=== PATIENT | female | born 1945 | race Caucasian/White ===

== ENCOUNTER 2024-12-26 00:37 | Day surgery (SDC) | payer MEDICARE, BC, SELFPAY ==
[2024-12-20 13:21] VITALS: BMI 24.7
--- OUTSIDE RECORDS SUMMARY | 2024-12-26 00:41 | XMS_ITS | Clinical Summary ---
Author Organization [facility] Address [address] [place] [address] Care Team Providers Care Speech Coach Name Role Phone Unavailable Primary Care Provider Unavailabl e Source Comments [facility],non-owned Affiliates and Associated Physician Practices is amultiple site organization consisting of ambulatory clinics and hospital sitesin [place], [place], [place] and [place]. This disclosure is being madepursuant to the Care Everywhere program and may not contain all information available regarding this patient. [facility] updated 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 Gender Identity Not on file Sexual Orientation Not on file Plan of Treatment Health Maintenance Due Date Last Done Comments BONE DENSITY TESTING 1945 MEDICARE AWV 12 MONTHS 1945 HEPATITIS C SCREENING 09/06/1965 DTAP/TDAP/TD VACCINES (1 - Tdap) 1966 PNEUMOCOCCAL VACCINE 50+ (1 of 1 - PCV) 1997 ZOSTER VACCINE (1 of 2) 1997 Respiratory Syncytial Virus (RSV) Vaccine Pt: or over 60 yrs (1 - 1-dose 75+ series) 2022 COVID-19 VACCINE ( - 2023-2 5 season) 2024 DEPRESSION SCREENING 08/02/2024 INFLUENZA VACCINE (Season Ended) 2025 HEPATITIS B VACCINE Aged Out No longe r eligible based on patient's age to complete this topic HIB VACCINE Aged Out No longer eligi ble based on patient's age to complete this topic HPV VACCINE Aged Out No longer eligi ble based on patient's age to complete this topic MENINGOCOCCAL (Group B) VACC INE SHARED DECISION-MAKING Aged Out No longer eligibl e based on patient's age to complete this topic MENINGOCOCCAL GROUPS A/C/Y/W VACCINE Aged Out No longer eligible b ased on patient's age to complete this topic Insurance MEDICARE [employer]M MEDICARE [employer]M
--- OUTSIDE RECORDS SUMMARY | 2024-12-26 00:41 | XMS_ITS | CONTINUITY OF CARE DOCUMENT ---
Author Name [email or web address] Address Unknown Organization [facility] Address [address] [place] [address] Phone [phone] Care Team Providers Care Melt Superintendant Name Role Phone Flex ZAMORA, Denise Unavailable ROSE WARD MD Unavailable [phone] FREDDY JOHANSEN MD Unavailable INSURANCE PROVIDERS Payer name Policy type / Coverage type [employer] red [employer] party ID [facility] [id number]
--- OUTSIDE RECORDS SUMMARY | 2024-12-26 00:41 | XMS_ITS | Encounter Summary ---
Author Organization [facility] Address [address] [place] [address] Care Team Providers Care Head Bucker Name Role Phone Unavailable Primary Care Provider Unavailabl e Encounter Details Date Type Department Care Team (Late st Contact Info) Description 12/04/2020 Lab Requisition [facility] [address] [place] [id number] Calixto Sánchez MD [address] [place] [address] Social History Tobacco Use Types Packs/Day Years Used Date Smoking Tobacco: Never Assessed Comments Unknown Sex and Gender Information Value Date Recorded Sex Assigned at Not on file 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 Gender Identity Not on file Sexual Orientation Not on file documented as of this encounter Plan of Treatment Not on file documented as of this encounter Procedures Procedure Name Priority Date/Time Associated Diagnosis Comments DERMATOPATHOLOGY Routine 12/03/2020 12:0 0 AM CDT documented in this encounter Results * DERMATOPATHOLOGY (12/03/2020 12:00 AM CDT) Case Report Dermatopathology Report Case: [id number] Authorizing Provider: Calixto Sánchez MD Collected: 12/03/2020 12:00 AM Ordering Location: [facility] Received: 12/04/2020 01:50 PM Pathologist: Swapna Almaraz MD Specimen: Skin, right presybeterian hairline 4:28 PM CDT DERMATOPATHOLOGY LABORATORY Final Diagnosis Specimen A. SKIN, right presybeterian hairline: SQUAMOUS PROLIFERATION (D48.5) (see microscopic description and comment) 4:28 PM CDT DERMATOPATHOLOGY LABORATORY at 1628 CDT Clinical History R/O ISK,SCC,BCC 4:28 PM CDT DERMATOPATHOLOGY LABORATORY Gross Description Specimen A: Received is one formalin filled container labeled with the patient's name and designated right presybeterian hairline. The specimen consists of a shave biopsy measuring 10x8x1 mm. Jar 0. 1 4:28 PM CDT DERMATOPATHOLOGY LABORATORY Microscopic Description Specimen A. SKIN, right presybeterian hairline: Sections show maturational disarray and nuclear pleomorphism of keratinocytes extending throughout the full thickness of the specimen. There is focal parakeratosis. The base of this lesion is not visualized. COMMENT: The histological differential diagnosis includes an irritated and inflamed benign keratosis, which is somewhat favored; a hypertrophic actinic keratosis; and squamous cell carcinoma. 4:28 PM CDT DERMATOPATHOLOGY LABORATORY Disclaimer An external and internal positive and negative controls are appropriate for the histochemical, immunohistochemical and immunofluorescence stain(s) in this case (if any), except where stated explicitly. The performance characteristics of the stain(s) cited in this report were developed and its performance characteristic determined by the Dermatopathology Laboratory at [facility], directed by Dr. Tanya Ace. These tests need not be, and therefore are not, approved by the [place] Food and Drug Administration. The tests are used for clinical purposes. Billing Codes Specimen Charges Stain Charges 14261 1 1 4:28 PM CDT DERMATOPATHOLOGY LABORATORY Embedded Images 4:28 PM CDT DERMATOPATHOLOGY LABORATORY Pathology/Cytolog y TISSUE SPECIMEN FROM SKIN / Unknown 12/03/2020 12/04/2020 1:50 PM CDT Calixto Sánchez MD LAB - PATHOLOGY/CYTOLOGY ORD ERABLES Final Result DERMATOPATHOLOGY LABORATORY [facility] - Department of Dermatology [address] [place] [address], [facility] [phone] documented in this encounter Visit Diagnoses Not on filedocumented in this encounter
--- OUTSIDE RECORDS SUMMARY | 2024-12-26 00:41 | XMS_ITS | Data Portability ---
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 Name Role Phone FREDDY ENGLISH Primary Care Provider Assessment Encounter Date Assessment Date Assessment LastModified by Organization Details LastModified Time 01/19/2023 01/19/2023 Medicare wellness completed Diagnosis assessment been discussed Blood work ordered Bone density Follow-up in 6 months [email or web address] Not available 01/19/2023 21:24:18 07/20/2023 07/20/2023 Continue current therapy will follow-up with me in 4-6 months Not available 07/20/2023 13:51:05 Plan of Treatment Reminders Order Date Submit Date Provider Last Modified By Organization Details Last Modified Time Details Appointments None recorded . Lab lipid panel, serum 023 01/20/20 [facility] (Lab), [address] [place], [address], 3 15:38:24 CBC w/ auto diff 023 01/20/20 [facility] (Lab), [address] [place], [address], 3 14:39:39 CMP, serum or plasma 023 01/20/20 [facility] (Lab), [address] [place], [address], 3 15:38:27 Referral None recorded . Procedures None recorded . Surgeries None recorded . Imaging None recorded . Medication Orders None recorded . Patient TargetsNo targets recorded. Patient Instructions Encounter Date Encounter Id Patient Instructions Last Modified By Organization Details Last Modified Time 01/19/2023 [id number] dementia rating scale-2* [email or web address] Not available 01/19/2023 17:11:11 alcohol misuse* [email or web address] Not available 01/19/2023 17:11:11 depression screening* [email or web address] Not available 01/19/2023 17:11:11 multi-dimensiona l health assessment questionnaire* [email or web address] Not available 01/19/2023 17:11:11 Personalized Hea lt Plan and Screening Recommendations Advance Directives - Do you have one? Yes Advance Directives - Do we have your advance directive on file in your health record? No, please bring in a copy at your earliest convenience Primary Prevention/Interven tion (prevents or decreases the chance of common diseases from occurring) Smoking Risk: Non Smoker Refer to attached smoking cessation handouts Refer to attached handouts and prescription will be sent to pharmacy Continue to consider stopping smoking and call if we can assist you Recommend screening for possible Emphysema with pulmonary function testing Recommend lung cancer screening with low dose CT scan of the chest I have no recommendations. Alcohol Misuse Screening: Negative Refer to attached alcohol cessation handout Refer to attached handout and prescription will be sent to pharmacy Decrease alcohol intake to 1 or less servings per day Continue to consider stopping alcohol and call if we can assist you Recommend referral for alcohol counseling/rehabili tation I have no recommendations. Weight: Appropriate Physical activity: Appropriate physical activity Nutrition: Good Fall Risk (screened today): Low Vaccines Pneumococcal: No further needed Influenza: Your next one in the fall of this year Chronic Disease Risks Stroke: Intermediate Risk I have no recommendations Act shanelle diagnosis, Continue current treatment plan My recommendation would be to make an appointment for further testing Continue current treatment plan Heart Attack: Intermediate Risk I have no recommendations Act shanelle diagnosis, Continue current treatment plan My recommendation would be to make an appointment for further testing Continue current treatment plan Clogging of the Arteries: Intermediate Risk I have no recommendations Act shanelle diagnosis, Continue current treatment plan My recommendation would be to make an appointment for further testing Continue current treatment plan Diabetes: Low Risk I have no recommendations Secondary Prevention/Interven tion (detects treatable diseases before they may cause symptoms, disability, or ) Breast Cancer Screening with mammogram: Your next mammogram: Ordered Recommended today Recommended today, but you have declined No screening necessary Your next mammogram: Fall 2022 Cervical/Uterine/Ov nic Cancer Screening: No screening necessary Osteoporosis Screening: Recommended today Date Screening Last Performed: 08/15/20 Colon Cancer Screening: Colonoscopy In: Ordered Recomme nded Recommended today, but you have declined No screening necessary In: 05/04/2024 Date Screening Last Performed: 05/03/19 with repeat recommendation for 5 years Eye Disease Screening: Ordered Recommended today Recommended today, but you have declined No Eye exam necessary Your next exam in: 01/2024 Dementia Risk: Low I have no recommendations Depression Screening: Negative Recommend additional evaluation and/or treatment as noted above Recommend follow appointment to further evaluate Recommend Behavioral Health referral Active diagnosis, Continue current treatment plan I have no recommendations. Not available 01/19/2023 15:56:09 Reason for Referral None Reported. Results Created Date Observation Date Name Description Value Unit Range Abnormal Flag Note LastModifiedBy Organization Detail LastModifiedTime 01/24/20 22 01/23/2022 COMPR EHENS SHANELLE METAB OLIC PANEL sodium 138 mmol/ L 137-14 5 Not Available [facility] (Lab) [address] [place], [address], 01/23/2022 13:18:47 01/24/20 22 01/23/2022 COMPR EHENS SHANELLE METAB OLIC PANEL potassium 4.5 mmol/ L 3.5-5. 1 Not Available [facility] (Lab) [address] [place], [address], 01/23/2022 13:18:47 01/24/20 22 01/23/2022 COMPR EHENS SHANELLE METAB OLIC PANEL chloride 103 mmol/ L 98-107 Not Available [facility] (Lab) [address] [place], [address], 01/23/2022 13:18:47 01/24/20 22 01/23/2022 COMPR EHENS SHANELLE METAB OLIC PANEL carbon dioxide 29 mmol/ L 22-30 Not Available [facility] (Lab) [address] [place], [address], 01/23/2022 13:18:47 01/24/20 22 01/23/2022 COMPR EHENS SHANELLE METAB OLIC PANEL anion gap 10.5 mmol/ L 14-22 low Not Available [facility] (Lab) [address] [place], [address], 01/23/2022 13:18:47 01/24/20 22 01/23/2022 COMPR EHENS SHANELLE METAB OLIC PANEL glucose 104 mg/dL 70-99 high Not Available [facility] (Lab) [address] [place], [address], 01/23/2022 13:18:47 01/24/20 22 01/23/2022 COMPR EHENS SHANELLE METAB OLIC PANEL BUN 14 mg/dL 8-19 Not Available [facility] (Lab) [address] [place], [address], 01/23/2022 13:18:47 01/24/20 22 01/23/2022 COMPR EHENS SHANELLE METAB OLIC PANEL creatinine 0.64 mg/dL 0.66-1 .25 low Not Available [facility] (Lab) [address] [place], [address], 01/23/2022 13:18:47 01/24/20 22 01/23/2022 COMPR EHENS SHANELLE METAB OLIC PANEL GFR >60 Refer ence Range : [place] ge GFR Healt hy Adult : >60 mL/mi n/1.7 3 m2 Chron ic Kidne y Disea se: 15-60 mL/mi n/1.7 3 m2 Kidne y Failu re: <15/m L/min /1.73 m2 www.n iddk. nih.g ov The MDRD study equat ion has not been valid ated in child fernie <18 years of age; pregn ant women ; the elder ly >85 years of age; or in some racia l or ethni c subgr oups, such as Hispa nics. Outsi de the valid ated mary eters , estim ated GFR is less accur ate, requi ring clini leisa judgm ent on a case- by-ca se basis . Clini leisa inter preta tion for other races and ages must be made by the clini avila. The MDRD study equat ion has not been valid ated for the evalu ation of serum creat inine relat ed to nutri fransisco l statu s or medic ation usage . For perso ns <18 years of age, a pedia tric GFR calcu lator is avail able on the [facility] websi te: https ://ww w.kid mary.o rg/pr ofess ional s/kdo qi/gf r_cal culat or Not Available [facility] (Lab) [address] [place], [address], 01/23/2022 13:18:47 01/24/20 22 01/23/2022 COMPR EHENS SHANELLE METAB OLIC PANEL alkaline phosphatase 81 U/L 38-126 Not Available [facility] (Lab) [address] [place], [address], 01/23/2022 13:18:47 01/24/20 22 01/23/2022 COMPR EHENS SHANELLE METAB OLIC PANEL alanine aminotransfe rase 20 U/L 0-35 Not Available [facility] (Lab) [address] [place], [address], 01/23/2022 13:18:47 01/24/20 22 01/23/2022 COMPR EHENS SHANELLE METAB OLIC PANEL aspartate aminotransfe rase 27 U/L 15-37 Not Available [facility] (Lab) [address] [place], [address], 01/23/2022 13:18:47 01/24/20 22 01/23/2022 COMPR EHENS SHANELLE METAB OLIC PANEL bilirubin, total 0.40 mg/dL 0.20-1 .30 Not Available [facility] (Lab) [address] [place], [address], 01/23/2022 13:18:47 01/24/20 22 01/23/2022 COMPR EHENS SHANELLE METAB OLIC PANEL calcium 9.5 mg/dL 8.4-10 .2 Not Available [facility] (Lab) [address] [place], [address], 01/23/2022 13:18:47 01/24/20 22 01/23/2022 COMPR EHENS SHANELLE METAB OLIC PANEL total protein 7.7 g/dL 6.3-8. 2 Not Available [facility] (Lab) [address] [place], [address], 01/23/2022 13:18:47 01/24/20 22 01/23/2022 COMPR EHENS SHANELLE METAB OLIC PANEL albumin 4.5 g/dL 3.0-4. 4 high Not Available [facility] (Lab) [address] [place], [address], 01/23/2022 13:18:47 01/24/20 22 01/23/2022 COMPR EHENS SHANELLE METAB OLIC PANEL globulin 3.2 g/dL 2.6-4. 2 Not Available [facility] (Lab) [address] [place], [address], 01/23/2022 13:18:47 01/24/20 22 01/23/2022 COMPR EHENS SHANELLE METAB OLIC PANEL A/G ratio 1.4 ratio 1.0-2. 0 Not Available [facility] (Lab) [address] [place], [address], 01/23/2022 13:18:47 01/24/20 22 01/23/2022 LIPID PANEL cholesterol 204 mg/dL 140-19 9 high NIH SHYANNE NSUS RECOM MENDA TION FOR JAY JAY STERO L: ADULT CHILD LOW RISK: <200 <170 BORDE RLINE : <200- 239 ----- HIGH RISK: >240 >200 Not Available [facility] (Lab) [address] [place], [address], 01/23/2022 13:18:42 01/24/20 22 01/23/2022 LIPID PANEL triglyceride s 105 mg/dL 0-150 NIH SHYANNE NSUS REPOR T RECOM MENDA TION FOR TRIGL YCERI NIKOLE: ADULT CHILD LOW RISK: <150 ----- BODER LINE: 150-1 99 ----- HIGH RISK: >200 ----- Not Available [facility] (Lab) [address] [place], [address], 01/23/2022 13:18:42 01/24/20 22 01/23/2022 LIPID PANEL HDL cholesterol 57 mg/dL 40- Not Available [facility] (Lab) [address] [place], [address], 01/23/2022 13:18:42 01/24/2001/23/2022 LIPID PANEL LDL cholesterol, calculated 126 mg/dL 0-130 NIH SHYANNE NSUS REPOR T RECOM MENDA TIONS FOR LDL: ADULT CHILD LOW RISK <130 <110 (OPTI MAL LDL) <100 ----- BORDE RLINE : 130-1 59 ----- HIGH RISK: >160 >130 A TRIGL YCERI DE RESUL T >400 INVAL IDATE S THE CALCU LATIO N FOR LDL FRACT IONAT ION - THE LDL RESUL T WILL NOT BE REPOR JESS. Not Available [facility] (Lab) [address] [place], [address], 01/23/2022 13:18:42 05/29/20 22 05/29/2022 SARS- COV-2 RNA(C OVID1 9),RT -PCR sars-cov-2 RNA(covid19) ,RT-PCR negati ve This test has been autho rized by the FDA under an Emerg ency Use Autho rizat ion (EUA) for use by autho rized labor atori es. Negat shanelle resul ts do not precl ude SARS- CoV-2 and shoul d not be used as the sole basis for treat ment or other patie nt manag ement decis ions. Test resul ts shoul d be corre lated with the clini leisa histo ry, epide miolo gical data, and other data avail able to the clini avila evalu ating the patie nt. Christel magaña w the Fact Sheet s for healt h care provi ders and patie nts at the [facility]: https ://ww w.UserVoice .gov/ media /1363 12/do wnloa d https ://ww w.fda .gov/ media /1363 13/do wnloa d https ://ww nexTune.UserVoice .gov/ media /1421 92/do wnloa d https ://Scandit .gov/ media /1421 91/do wnloa d Metho dolog y: Real- Time RT-PC R Not Available [facility] (Lab) [address] [place], [address], 05/29/2022 18:06:09 05/29/2005/29/2022 INFLU EUGENIA A/B ANTIG EN RAPID flu A negati ve negati ve Not Available [facility] (Lab) [address] [place], [address], 05/29/2022 17:23:43 05/29/20 22 05/29/2022 INFLU EUGENIA A/B ANTIG EN RAPID flu B negati ve negati ve THIS TEST CAN NOT DISTI NGUIS H INFLU EUGENIA A VIRUS SUBTY PES. ALSO, CHRISTEL E NOTE THAT A NEGAT SHANELLE RESUL T DOES NOT EXCLU DE INFLU EUGENIA VIRUS INFEC TION. IF MORE CONCL USIVE TESTI NG IS SAM ED, [facility] CONFI RMATO RY TESTI NG WITH RT-PC R IS MARIA A LYONS. Not Available [facility] (Lab) [address] [place], [address], 05/29/2022 17:23:43 05/29/20 22 05/29/2022 INFLU EUGENIA A/B ANTIG EN RAPID valid QC positi ve Not Available [facility] (Lab) [address] [place], [address], 05/29/2022 17:23:43 05/29/20 22 05/29/2022 INFLU EUGENIA A/B ANTIG EN RAPID lot # [id number] Not Available [facility] (Lab) [address] [place], [address], 05/29/2022 17:23:43 05/29/20 22 05/29/2022 INFLU EUGENIA A/B ANTIG EN RAPID source pearl glue drier swab Not Available [facility] (Lab) [address] [place], [address], 05/29/2022 17:23:43 02/16/20 23 02/15/2023 CBC/C OMPLE TE BLD COUNT W/DIF F white blood cells 8.5 x10'3 /uL 4.2-10 .8 Not Available [facility] (Lab) [address] [place], [address], 02/15/2023 14:39:39 02/16/20 23 02/15/2023 CBC/C OMPLE TE BLD COUNT W/DIF F red blood cells 4.64 x10'6 /uL 3.80-5 .20 Not Available [facility] (Lab) [address] [place], [address], 02/15/2023 14:39:39 02/16/20 23 02/15/2023 CBC/C OMPLE TE BLD COUNT W/DIF F hemoglobin 13.2 g/dL 12.0-1 5.6 Not Available [facility] (Lab) [address] [place], [address], 02/15/2023 14:39:39 02/16/20 23 02/15/2023 CBC/C OMPLE TE BLD COUNT W/DIF F hematocrit 40.6 % 35.7-4 5.7 Not Available [facility] (Lab) [address] [place], [address], 02/15/2023 14:39:39 02/16/20 23 02/15/2023 CBC/C OMPLE TE BLD COUNT W/DIF F mean red cell volume 87.5 fL 82.0-9 9.0 Not Available [facility] (Lab) [address] [place], [address], 02/15/2023 14:39:39 02/16/20 23 02/15/2023 CBC/C OMPLE TE BLD COUNT W/DIF F mean red cell hemoglobin 28.4 pg 27.0-3 3.0 Not Available [facility] (Lab) [address] [place], [address], 02/15/2023 14:39:39 02/16/20 23 02/15/2023 CBC/C OMPLE TE BLD COUNT W/DIF F mean RBC HGB concentratio n 32.5 g/dL 31.0-3 6.0 Not Available [facility] (Lab) [address] [place], [address], 02/15/2023 14:39:39 02/16/20 23 02/15/2023 CBC/C OMPLE TE BLD COUNT W/DIF F red cell distribution width 13.0 % 11.8-1 5.5 Not Available [facility] (Lab) [address] [place], [address], 02/15/2023 14:39:39 02/16/20 23 02/15/2023 CBC/C OMPLE TE BLD COUNT W/DIF F platelets 391 x10'3 /uL 150-40 0 Not Available [facility] (Lab) [address] [place], [address], 02/15/2023 14:39:39 02/16/20 23 02/15/2023 CBC/C OMPLE TE BLD COUNT W/DIF F mean platelet volume 10.4 fL 9.0-12 .4 Not Available [facility] (Lab) [address] [place], [address], 02/15/2023 14:39:39 02/16/20 23 02/15/2023 CBC/C OMPLE TE BLD COUNT W/DIF F neutrophils 52.5 % 39.0-7 2.0 Not Available [facility] (Lab) [address] [place], [address], 02/15/2023 14:39:39 02/16/20 23 02/15/2023 CBC/C OMPLE TE BLD COUNT W/DIF F lymphocytes 34.1 % 16.0-4 7.0 Not Available [facility] (Lab) [address] [place], [address], 02/15/2023 14:39:39 02/16/20 23 02/15/2023 CBC/C OMPLE TE BLD COUNT W/DIF F monocytes 8.6 % 5.0-12 .0 Not Available [facility] (Lab) [address] [place], [address], 02/15/2023 14:39:39 02/16/20 23 02/15/2023 CBC/C OMPLE TE BLD COUNT W/DIF F eosinophils 3.8 % 1.0-7. 0 Not Available [facility] (Lab) [address] [place], [address], 02/15/2023 14:39:39 02/16/20 23 02/15/2023 CBC/C OMPLE TE BLD COUNT W/DIF F basophils 0.8 % 0.0-2. 0 Not Available [facility] (Lab) [address] [place], [address], 02/15/2023 14:39:39 02/16/20 23 02/15/2023 CBC/C OMPLE TE BLD COUNT W/DIF F immature granulocytes 0.2 % 0.00-0 .50 Not Available [facility] (Lab) [address] [place], [address], 02/15/2023 14:39:39 02/16/20 23 02/15/2023 CBC/C OMPLE TE BLD COUNT W/DIF F neutrophils, absolute count 4.43 x10'3 /uL 1.5-8. 0 Not Available [facility] (Lab) [address] [place], [address], 02/15/2023 14:39:39 02/16/20 23 02/15/2023 CBC/C OMPLE TE BLD COUNT W/DIF F lymphocytes, absolute count 2.88 x10'3 /uL 1.07-3 .43 Not Available [facility] (Lab) [address] [place], [address], 02/15/2023 14:39:39 02/16/20 23 02/15/2023 CBC/C OMPLE TE BLD COUNT W/DIF F monocytes, absolute count 0.73 x10'3 /uL 0.29-0 .99 Not Available [facility] (Lab) [address] [place], [address], 02/15/2023 14:39:39 02/16/20 23 02/15/2023 CBC/C OMPLE TE BLD COUNT W/DIF F eosinophils, absolute count 0.32 x10'3 /uL 0.02-0 .53 Not Available [facility] (Lab) [address] [place], [address], 02/15/2023 14:39:39 02/16/20 23 02/15/2023 CBC/C OMPLE TE BLD COUNT W/DIF F basophils, absolute count 0.07 x10'3 /uL 0.01-0 .08 Not Available [facility] (Lab) [address] [place], [address], 02/15/2023 14:39:39 02/16/20 23 02/15/2023 CBC/C OMPLE TE BLD COUNT W/DIF F immature granulocytes ,absolute 0.02 x10'3 /uL 0.00-0 .05 Not Available [facility] (Lab) [address] [place], [address], 02/15/2023 14:39:39 02/16/20 23 02/15/2023 CBC/C OMPLE TE BLD COUNT W/DIF F nucleated red blood cells 0.0 % -0 Not Available [facility] (Lab) [address] [place], [address], 02/15/2023 14:39:39 02/16/20 23 02/15/2023 CBC/C OMPLE TE BLD COUNT W/DIF F NRBC# 0.00 x10'3 /uL Not Available [facility] (Lab) [address] [place], [address], 02/15/2023 14:39:39 02/16/20 23 02/15/2023 LIPID PANEL cholesterol 248 mg/dL 140-19 9 high NIH SHYANNE NSUS RECOM MENDA TION FOR JAY JAY STERO L: ADULT CHILD LOW RISK: <200 <170 BORDE RLINE : <200- 239 ----- HIGH RISK: >240 >200 Not Available [facility] (Lab) [address] [place], [address], 02/15/2023 15:38:24 02/16/20 23 02/15/2023 LIPID PANEL triglyceride s 147 mg/dL 0-150 NIH SHYANNE NSUS REPOR T RECOM MENDA TION FOR TRIGL YCERI NIKOLE: ADULT CHILD LOW RISK: <150 ----- BODER LINE: 150-1 99 ----- HIGH RISK: >200 ----- Not Available [facility] (Lab) [address] [place], [address], 02/15/2023 15:38:24 02/16/20 23 02/15/2023 LIPID PANEL HDL cholesterol 53 mg/dL 40- Not Available [facility] (Lab) [address] [place], [address], 02/15/2023 15:38:24 02/16/20 23 02/15/2023 LIPID PANEL LDL cholesterol, calculated 166 mg/dL 0-130 high NIH SHYANNE NSUS REPOR T RECOM MENDA TIONS FOR LDL: ADULT CHILD LOW RISK <130 <110 (OPTI MAL LDL) <100 ----- BORDE RLINE : 130-1 59 ----- HIGH RISK: >160 >130 A TRIGL YCERI DE RESUL T >400 INVAL IDATE S THE CALCU LATIO N FOR LDL FRACT IONAT ION - THE LDL RESUL T WILL NOT BE REPOR JESS. Not Available [facility] (Lab) [address] [place], [address], 02/15/2023 15:38:24 02/16/20 23 02/15/2023 COMPR EHENS SHANELLE METAB OLIC PANEL sodium 138 mmol/ L 137-14 5 Not Available [facility] (Lab) [address] [place], [address], 02/15/2023 15:38:27 02/16/20 23 02/15/2023 COMPR EHENS SHANELLE METAB OLIC PANEL potassium 4.1 mmol/ L 3.5-5. 1 Not Available [facility] (Lab) [address] [place], [address], 02/15/2023 15:38:27 02/16/20 23 02/15/2023 COMPR EHENS SHANELLE METAB OLIC PANEL chloride 100 mmol/ L 98-107 Not Available [facility] (Lab) [address] [place], [address], 02/15/2023 15:38:27 02/16/20 23 02/15/2023 COMPR EHENS SHANELLE METAB OLIC PANEL carbon dioxide 27 mmol/ L 22-30 Not Available [facility] (Lab) [address] [place], [address], 02/15/2023 15:38:27 02/16/20 23 02/15/2023 COMPR EHENS SHANELLE METAB OLIC PANEL anion gap 15.1 mmol/ L 14-22 Not Available [facility] (Lab) [address] [place], [address], 02/15/2023 15:38:27 02/16/20 23 02/15/2023 COMPR EHENS SHANELLE METAB OLIC PANEL glucose 104 mg/dL 70-99 high Not Available [facility] (Lab) [address] [place], [address], 02/15/2023 15:38:27 02/16/20 23 02/15/2023 COMPR EHENS SHANELLE METAB OLIC PANEL BUN 12 mg/dL 8-19 Not Available [facility] (Lab) [address] [place], [address], 02/15/2023 15:38:27 02/16/20 23 02/15/2023 COMPR EHENS SHANELLE METAB OLIC PANEL creatinine 0.61 mg/dL 0.66-1 .25 low Not Available [facility] (Lab) [address] [place], [address], 02/15/2023 15:38:27 02/16/20 23 02/15/2023 COMPR EHENS SHANELLE METAB OLIC PANEL GFR >60 Refer ence Range : [place] ge GFR Healt hy Adult : >60 mL/mi n/1.7 3 m2 Chron ic Kidne y Disea se: 15-60 mL/mi n/1.7 3 m2 Kidne y Failu re: <15/m L/min /1.73 m2 www.n iddk. nih.g ov The MDRD study equat ion has not been valid ated in child fernie <18 years of age; pregn ant women ; the elder ly >85 years of age; or in some racia l or ethni c subgr oups, such as Hispa nics. Outsi de the valid ated mary eters , estim ated GFR is less accur ate, requi ring clini leisa judgm ent on a case- by-ca se basis . Clini leisa inter preta tion for other races and ages must be made by the clini avila. The MDRD study equat ion has not been valid ated for the evalu ation of serum creat inine relat ed to nutri fransisco l statu s or medic ation usage . For perso ns <18 years of age, a pedia tric GFR calcu lator is avail able on the [facility] websi te: https ://ww w.kid mary.o rg/pr ofess ional s/kdo qi/gf r_cal culat or Not Available [facility] (Lab) [address] [place], [address], 02/15/2023 15:38:27 02/16/20 23 02/15/2023 COMPR EHENS SHANELLE METAB OLIC PANEL alkaline phosphatase 77 U/L 38-126 Not Available [facility] (Lab) [address] [place], [address], 02/15/2023 15:38:27 02/16/20 23 02/15/2023 COMPR EHENS SHANELLE METAB OLIC PANEL alanine aminotransfe rase 24 U/L 0-35 Not Available [facility] (Lab) [address] [place], [address], 02/15/2023 15:38:27 02/16/20 23 02/15/2023 COMPR EHENS SHANELLE METAB OLIC PANEL aspartate aminotransfe rase 32 U/L 15-37 Not Available [facility] (Lab) [address] [place], [address], 02/15/2023 15:38:27 02/16/20 23 02/15/2023 COMPR EHENS SHANELLE METAB OLIC PANEL bilirubin, total 0.60 mg/dL 0.20-1 .30 Not Available [facility] (Lab) [address] [place], [address], 02/15/2023 15:38:27 02/16/20 23 02/15/2023 COMPR EHENS SHANELLE METAB OLIC PANEL calcium 9.4 mg/dL 8.4-10 .2 Not Available [facility] (Lab) [address] [place], [address], 02/15/2023 15:38:27 02/16/20 23 02/15/2023 COMPR EHENS SHANELLE METAB OLIC PANEL total protein 7.9 g/dL 6.3-8. 2 Not Available [facility] (Lab) [address] [place], [address], 02/15/2023 15:38:27 02/16/20 23 02/15/2023 COMPR EHENS SHANELLE METAB OLIC PANEL albumin 4.4 g/dL 3.0-4. 4 Not Available [facility] (Lab) [address] [place], [address], 02/15/2023 15:38:27 02/16/20 23 02/15/2023 COMPR EHENS SHANELLE METAB OLIC PANEL globulin 3.5 g/dL 2.6-4. 2 Not Available [facility] (Lab) [address] [place], [address], 02/15/2023 15:38:27 02/16/20 23 02/15/2023 COMPR EHENS SHANELLE METAB OLIC PANEL A/G ratio 1.3 ratio 1.0-2. 0 Not Available [facility] (Lab) [address] [place], [address], 02/15/2023 15:38:27 06/23/20 22 06/23/2022 XR, chest , 2 view [facility] [address] [place] [address] [phone] Patien t Name: MEREDITH LORENZO Access ion #: [id number] Sex: F : 1945 3 Locati on: RAD Attend ing Physic palak: ELYSSA ENGLISH Orderi ng Physic palak: ELYSSA ENGLISH Exam Date: 2021 10:00 AM Exam Name: XR CHEST 2V Admitt ing Diagno sis(es ): RADIOL OGY REPORT - FINAL EXAM: XR CHEST 2V HISTOR Y: COUGH 76-yea r-old female with cough, former smoker . COMPAR BHARATHI: None availa ble. TECHNI QUE: 2 views of the chest were perfor med. FINDIN GS: No pneumo thorax , pleura l effusi ons, pulmon ann edema, or consol idativ e infilt rates. The heart is not enlarg ed. No fractu res are identi fied about the bony thorax . 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 There are postop erativ e change s the lower cervic al spine. IMPRES LISA: Page [address] [facility] Name: MEREDITH LORENZO Access ion #: [id number] Sex: F : 1945 3 Exam Date: 2021 10:00 AM Exam Name: XR CHEST 2V Admitt ing Diagno sis(es ): No acute intrat horaci c proces s. Create d and electr onical ly signed by: Martinez liang MD Signed Date: 2021 10:19 AM (CT) Dictat ed by: Martinez liang MD DD: 2021 10:19 AM (CT) DT: 2021 10:19 AM (CT) Page 2 of 2 [facility] (Imaging) [address] [place], [address], 01/19/2023 16:42:45 Result Notes None recorded. Problems Name Problem SNOMED Code Status Onset Date Resolution Date Notes Provider Name and Address Organization Details Recorded Time Benign essential hypertension 5613696 Active Not Available [facility] 3 03:13:36 Acute sinusitis 52394308 Active 2021 Not Available [facility] 3 03:13:36 Abdominal pain 29944319 Active Not Available [facility] 3 03:13:36 Pure hypercholeste rolemia 631059029 Active Not Available [facility] 3 03:13:36 Blood in urine 22337386 Active Not Available [facility] 3 03:13:36 Vitamin D deficiency 81752716 Active Not Available [facility] 3 03:13:36 Fever 856114760 Active 2021 Not Available [facility] 3 03:13:36 Osteoarthriti s 886929683 Active 2019 Not Available [facility] 3 03:13:37 Vertigo 214744691 Active 2021 Not Available [facility] 3 03:13:37 Anxiety 49038083 Active 2021 Not Available [facility] 3 03:13:37 Cough 27022291 Active 2021 Not Available [facility] 3 03:13:37 Upper respiratory infection 04926122 Active 2021 Not Available [facility] 3 03:13:37 Influenza 0842409 Active 2021 Not Available [facility] 3 03:13:37 Urinary tract infectious disease 40131832 Active Not Available [facility] 3 03:13:37 COVID-19 095060020 Active 2021 Not Available [facility] 3 03:13:37 Notes:eye exam August 2017 Problem Notes None recorded. Procedures Surgical History Date Name Laterality Status Provider Name and Address Organization Details Recorded Time 01/20/20 23 Medicare Wellness CPT Code, subsequent completed JAYDA Gore - S [place] [employer] [facility] 01/19/2023 15:44:57 04/29/20 Colonoscopy completed Not Available [facility] 10/01/19 04:42:08 Imaging Results None recorded. Procedure Notes None recorded. Medical Equipment None Reported. Allergies Allergen ID Allergen Name Allergen Category Reaction Reaction Severity Criticality Documentation Date Start Date Code Code System Note Provider Name and Address Organization Details Recorded Time 8478 Product containin g 3-hydroxy -3-methyl glutaryl- coenzyme A reductase inhibitor (product) medicatio n myalgias (muscle pain) severe Not available 09/30/2022 42415 009 SNOMED Not Available [facility] 3 05:04:56 8479 Lexapro medicatio n other Not available Not available 09/30/2022 53041 1 RxNorm Annelise nt felt like she could n't catch her breat h. Not Available [facility] 3 05:04:56 8480 hydrocodo ne Not available vomiting Not available Not available 09/30/2022 5489 RxNorm Not Available [facility] 3 05:04:56 Medications Name Sig Start Date Stop Date Status Note LastModified by Organization Details LastModified Time amoxicillin 500 mg capsule TK 1 C PO TID FOR 7 DAYS active Not Available Not Available No t Available latanoprost 0.005 % eye drops 02/07 completed Not Available Not Available Not Available dicloxacill in 500 mg capsule 05/23 completed Not Available Not Available Not Available prednisone 10 mg tablet 3 tabs x 2 days, 2 tabs x 2 days 1 tab x 2 days 02/03 completed Not Available Not Available Not Available azithromyci n 250 mg tablet TAKE 2 TABLETS BY MOUTH FOR 1 DAY THEN TAKE 1 TABLET BY MOUTH DAILY FOR 4 DAYS 06/30 completed Not Available Not Available Not Available valacyclovi r 1 gram tablet 04/01 completed Not Available Not Available Not Available fluorouraci l 5 % topical cream 11/01 completed Not Available Not Available Not Available bimatoprost 0.03 % eye drops INSTILL 1 DROP IN BOTH EYES AT BEDTIME active Not Available Not Available No t Available amlodipine 5 mg tablet TAKE 1 TABLET BY MOUTH EVERY DAY active Not Available Not Available No t Available tramadol 50 mg tablet active Not Available Not Available No t Available triamcinolo ne acetonide 0.1 % topical cream APPLY TO THE RED SPOT ON LEFT FOREARM AND RASH ON THE LEGS TWICE DAILY. DO NOT APPLY TO FACE OR GENITALS 07/20 completed Not Available Not Available Not Available amoxicillin 500 mg tablet Take 1 tablet 3 times a day by oral route for 7 days. active Not Available Not Available No t Available lorazepam 0.5 mg tablet TAKE 1 TABLET BY MOUTH TWICE DAILY NEEDED active Not Available Not Available No t Available Lidoderm 5 % topical patch APPLY 1 PATCH BY TRANSDERM AL ROUTE ONCE DAILY (MAY WEAR UP TO 12HOURS.) 07/10 completed Not Available Not Available Not Available Valium 5 mg tablet Take 0.5 tablets twice a day by oral route. 11/25 completed Not Available Not Available Not Available timolol maleate 0.25 % eye drops INSTILL 1 DROP INTO BOTH EYES EVERY MORNING DIRECTED 06/30 completed Not Available Not Available Not Available oseltamivir 75 mg capsule TAKE 1 CAPSULE BY MOUTH TWICE DAILY FOR 5 DAYS 06/30 completed Not Available Not Available Not Available Cipro 500 mg tablet Take 1 tablet every 12 hours by oral route for 7 days. 07/10 completed Not Available Not Available Not Available raloxifene 60 mg tablet active Not Available Not Available Not Available mupirocin 2 % topical ointment 04/01 completed Not Available Not Available Not Available ergocalcife rol (vitamin D2) 1,250 mcg (50,000 unit) capsule TK 1 C PO Q OTHER WEEK 11/16 completed Not Available Not Available Not Available levofloxaci n 500 mg tablet TAKE 1 TABLET BY MOUTH EVERY 24 HOURS 06/30 completed Not Available Not Available Not Available estradiol 0.01% (0.1 mg/gram) vaginal cream PRN active Not Available Not Available Not Available timolol maleate 0.5 % eye drops INSTILL 1 DROP INTO BOTH EYES EVERY MORNING active Not Available Not Available No t Available cefdinir 300 mg capsule TAKE 1 CAPSULE BY MOUTH TWICE DAILY FOR 7 DAYS active Not Available Not Available No t Available fluticasone propionate 50 mcg/actuati on nasal spray,suspe nsion [place] 1 spray every day by intranasa l route. active PRN Not Available Not Available No t Available amoxicillin 875 mg-potassiu m clavulanate 125 mg tablet 06/05 completed Not Available Not Available Not Available ezetimibe 10 mg tablet TAKE 1 TABLET BY MOUTH EVERY DAY active Not Available Not Available No t Available rosuvastati n 10 mg tablet TAKE 1 TABLET BY MOUTH EVERY OTHER DAY active Not Available Not Available No t Available Crestor 5 mg tablet TAKE 1 TABLET (5 MG) EVERY OTHER DAY 11/16 completed Not Available Not Available Not Available timolol maleate 0.5 % once daily eye drops INSTILL 1 DROP IN BOTH EYES EVERY MORNING active Not Available Not Available No t Available aspirin 2020 active Not Available Not Available Not Avai lable Combigan 0.2 %-0.5 % eye drops PLACE 1 DROP INTO BOTH EYES BID 07/10 completed Not Available Not Available Not Available Durezol 0.05 % eye drops 08/30 completed Not Available Not Available Not Available Besivance 0.6 % eye drops,suspe nsion 08/30 completed Not Available Not Available Not Available blood pressure test kit-large cuff 10/13 completed Not Available Not Available Not Available Suprep Bowel Prep Kit 17.5 gram-3.13 gram-1.6 gram oral solution MIX AND DRINK UTD 07/18 completed Not Available Not Available Not Available Lumigan 0.01 % eye drops INSTILL 1 DROP INTO BOTH EYES QHS UTD 02/07 completed Not Available Not Available Not Available Prolensa 0.07 % eye drops 04/01 completed Not Available Not Available Not Available Repatha SureClick 140 mg/mL subcutaneou s pen injector Inject 1 mL every 2 weeks by subcutane ous route. active Not Available Not Available No t Available Fluarix Quad 0605-0917 (PF) 60 mcg (15 mcg x 4)/0.5 mL IM syringe 07/12 completed Not Available Not Available Not Available Fluad 65yr up(PF)45 mcg(15 mcgx3)/0.5 mL intramuscul ar syringe active Not Available Not Available N ot Available Nexletol 180 mg tablet Take 1 tablet every day by oral route. 12/12 completed Not Available Not Available Not Available Fluzone High-Dose Quad (PF) 240 mcg/0.7 mL IM syringe ADM 0.7ML IM UTD 08/08 completed Not Available Not Available Not Available BinaxNOW COVID-19 Ag Self Test kit TEST DIRECTED TODAY 06/30 completed Not Available Not Available Not Available Paxlovid 300 mg (150 mg x 2)-100 mg tablets in a dose pack TAKE 3 TABLETS BY MOUTH TWICE A DAY FOR 5 DAYS active Not Available Not Available No t Available Vitals Date Recorded Body mass index (BMI) Body height Heart rate Body temperature Body weight Systolic And Diastolic Provider Name and Address Organization Details Last Updated DateTime 2 25.8 kg/m2 152.4 cm 72 /min 97.2 [degF] 95163.1 9 g 122/68 mm[Hg] Not Available [facility] 3 04:48:53 Date Recorded Body mass index (BMI) Body height Heart rate Body temperature Body weight Provider Name and Address Organization Details Last Updated DateTime 11/25/2021 26 kg/m2 152.4 cm 66 /min 97.5 [degF] 70598.79 g Not Available [facility] 3 04:48:57 Date Recorded Body height Body mass index (BMI) Body weight Body temperature Heart rate Systolic And Diastolic Provider Name and Address Organization Details Last Updated DateTime 3 152.4 cm 24.8 kg/m2 85190.2 3 g 98.1 [degF] 75 /min 122/72 mm[Hg] RACHELLE Cano [facility] [employer] [facility] 3 15:34:21 Date Recorded Body mass index (BMI) Body height Heart rate Body temperature Body weight Systolic And Diastolic Provider Name and Address Organization Details Last Updated DateTime 2 25 kg/m2 152.4 cm 75 /min 96.6 [degF] 00161.8 2 g 138/80 mm[Hg] Not Available [facility] 3 04:48:53 Date Recorded Body height Body mass index (BMI) Body weight Body temperature Heart rate Systolic And Diastolic Provider Name and Address Organization Details Last Updated DateTime 3 152.4 cm 25 kg/m2 95701.8 2 g 97.5 [degF] 79 /min 142/80 mm[Hg] RACHELLE Cano [employer] [facility] 3 12:21:29 Social History Question Answer Notes LastModified by Organizat ion Details LastModified Time Tobacco Smoking Status Former Smoker Not Available [facility] 09/30/2022 04:39:56 Do You Have An Advance Directive? Yes MIGRATION.81899 42810 Information not available 09/30/2022 Do You Wear A Helmet When Biking? No MIGRATION.75878 80739 Information not available 09/30/2022 Are You Blind Or Do You Have Difficulty Seeing? No MIGRATION.94243 55085 Information not available 09/30/2022 What Is Your Level Of Caffeine Consumption? Moderate MIGRATION.24433 85296 Information not available 09/30/2022 How Much Tobacco Do You Chew? None MIGRATION.82645 48823 Information not available 09/30/2022 In The 14 Days Before Symptom Onset, Have You Had Close Contact With A Laboratory-confi rmed COVID-19 While That Case Was Ill? No MIGRATION.65599 17378 Information not available 09/30/2022 In The 14 Days Before Symptom Onset, Have You Had Close Contact With A Person Who Is Under Investigation For COVID-19 While That Person Was Ill? No MIGRATION.14032 02089 Information not available 09/30/2022 Are You Deaf Or Do You Have Serious Difficulty Hearing? No MIGRATION.24991 22750 Information not available 09/30/2022 What Type Of Diet Are You Following? REGULAR MIGRATION.10312 88820 Information not available 09/30/2022 Which Illicit Or Recreational Drugs Have You Used? None MIGRATION.16650 07694 Information not available 09/30/2022 Have There Been Any Changes To Your Family Or Social Situation? No MIGRATION.39855 67547 Information not available 09/30/2022 When Did You Quit Smoking? 16+yearssincelastc igarette MIGRATION.94976 96827 Information not available 09/30/2022 Are There Any Guns Present In Your Home? Yes MIGRATION.91127 43405 Information not available 09/30/2022 Do You Use Insect Repellent Routinely? Yes MIGRATION.72568 98322 Information not available 09/30/2022 Where Do You Live? [facility] MIGRATION.53074 22122 Information not available 09/30/2022 Presence Of Domestic Violence No Information not available 01/19/2023 Guns Present In The Home? Yes Information not available 01/19/2023 Are You Able To Care For Yourself? Yes Information not available 01/19/2023 Are You Blind Or Do Yo Have Difficulty Seeing? No Information not available 01/19/2023 Are You Deaf Or Do You Have Serious Difficulty Hearing? No Information not available 01/19/2023 General Stress Level? Low Information not available 01/19/2023 Live Alone Of With Others? Alone Information not available 01/19/2023 Do You Have A Medical Power Of Database Marketing Manager? No MIGRATION.12312 66056 Information not available 09/30/2022 What Was The Date Of Your Most Recent Tobacco Screening? 07/20/2023 [email or web address] Information not available 07/20/2023 Do You Have Any Pets? Yes MIGRATION.22081 53090 Information not available 09/30/2022 What Is Your Relationship Status? MIGRATION.45141 46250 Information not available 09/30/2022 Do You Use Your Seat Belt Or Car Seat Routinely? Yes MIGRATION.81507 82146 Information not available 09/30/2022 Do You Have Smoke And Carbon Monoxide Detectors In Your Home? Yes MIGRATION.96497 02747 Information not available 09/30/2022 Are You Passively Exposed To Smoke? No MIGRATION.46514 41836 Information not available 09/30/2022 Are There Any Smokers In Your House? No MIGRATION.17377 95977 Information not available 09/30/2022 What Types Of Sporting Activities Do You Participate In? None MIGRATION.34706 73537 Information not available 09/30/2022 Do You Use Sunscreen Routinely? Yes MIGRATION.75500 78249 Information not available 09/30/2022 Has Tobacco Cessation Counseling Been Provided? No MIGRATION.11123 10833 Information not available 09/30/2022 How Many Years Have You Smoked Tobacco? 10 MIGRATION.72381 19193 Information not available 09/30/2022 Have You Recently Traveled Abroad? No MIGRATION.63671 29688 Information not available 09/30/2022 Do You Have Difficulty Walking Or Climbing Stairs? No MIGRATION.60833 96023 Information not available 09/30/2022 Do You Have Any Dietary Restrictions? No MIGRATION.11763 75419 Information not available 09/30/2022 Sex: Female Functional Status Question Answer Note LastModified by Organizat ion Details LastModified Time Do you use any illicit or recreational drugs? No MIGRATION.870603 3591 Information not available 09/30/2022 Do you or have you ever used any other forms of tobacco or nicotine? No MIGRATION.512617 7105 Information not available 09/30/2022 What is your level of alcohol consumption? None MIGRATION.917817 1803 Information not available 09/30/2022 Do you or have you ever used smokeless tobacco? Never used smokeless tobacco MIGRATION.892507 4489 Information not available 09/30/2022 Do you have transportation difficulties? No MIGRATION.738124 5949 Information not available 09/30/2022 Are you able to walk? YESWOREST MIGRATION.942728 5193 Information not available 09/30/2022 Do you have difficulty doing errands alone? No MIGRATION.066077 9419 Information not available 09/30/2022 Are you able to care for yourself? Yes MIGRATION.979201 6843 Information not available 09/30/2022 What is your occupation? RETIRED MIGRATION.229183 0183 Information not available 09/30/2022 Do you have difficulty dressing or bathing? No MIGRATION.608094 2360 Information not available 09/30/2022 Do you or have you ever used e-cigarettes or vape? Never used electronic cigarettes MIGRATION.202468 6859 Information not available 09/30/2022 What is your exercise level? Occasional Information not available 01/19/2023 Mental Status Question Answer Note LastModified by Organizat ion Details LastModified Time Do you feel stressed (tense, restless, nervous, or anxious, or unable to sleep at night)? [id number] MIGRATION.[id number] 26 Information not available 09/30/2022 Do you have difficulty concentrating, remembering or making decisions? No MIGRATION.02473969 26 Information not available 09/30/2022 Family History Relationship Description Onset Age of this Age Resolved Age Notes LastModified by Organization Details LastModified Time Mother Dementia MIGRATION.031 [id number] Not available 09/30/2022 04:42:15 Mother Malignant tumor of breast now in lymph nodes MIGRATION.145 [id number] Not available 09/30/2022 04:42:15 Sister Malignant tumor of breast 62 MIGRATION.267 [id number] Not available 09/30/2022 04:42:15 Sister Anemia MIGRATION.840 [id number] Not available 09/30/2022 04:42:15 Medical History Condition Response NERVE DISEASE N BLINDNESS N RHEUMATIC FEVER N KIDNEY STONES N BLADDER PROBLEMS N MRSA N OTHER # 1 N POLIO N LUNG DISEASE/DISORDER N HISTORY OF DRUG ABUSE N RADIATION / CHEMOTHERAPY N COPD N Other # 2 N BLOOD DISEASES N EAR OR HEARING PROBLEMS N MUMPS N SHINGLES N BOWEL PROBLEMS N DEPRESSION (INCLUDING POST ) N STROKE/TIA N ULCERS N BENIGN PROSTATIC HYPERPLASIA N MEASLES N HYPOTENSION N MYOCARDIAL INFARCTION N OBESITY N GERD/NAUSEA N ANEURYSM N URINARY/BLADDER/KIDNEY PROBLEMS N CORONARY ARTERY DISEASE (CAD) N ADDICTION CONCERNS N Impotence N ENDOMETRIOSIS N USE OF BLOOD THINNERS N SKIN PROBLEMS N GASTROINTESTINAL DISORDER N PERIPHERAL VASCULAR DISEASE N MUSCLE,JOINT OR BONE PROBLEMS N GASTROINTESTINAL BLEEDING N BLOOD CLOTS N ASTHMA N CATARACTS N ERECTILE DYSFUNCTION N VARICOSITIES N GI PROBLEMS N Low Testosterone N INFERTILITY N AIDS/HIV N CHEMOTHERAPY / RADIATION N LIVER DISEASE N MALE HYPOGONADISM N HYPERTENSION Y Deficiency Y TOURETTE'S N ANXIETY DISORDER Y BLOOD TRANSFUSION N ANEMIA/BLOOD DISORDER N CHRONIC EAR INFECTIONS N BRONCHITIS N TUBERCULOSIS N GLAUCOMA N FOOT PROBLEM N DIVERTICULITIS N SLEEP APNEA N CHICKENPOX N INFECTIOUS DISEASE N PROSTATE N HEART ARRHYTHMIA N INSOMNIA N HIGH CHOLESTEROL / HYPERLIPIDEMIA N EYE PROBLEMS N HYPERTHYROIDISM N EDEMA N CHRONIC PAIN SYNDROME N HYPOTHYROIDISM N CONSTIPATION N CAROTID BLOCKAGE N BACK / NECK PROBLEMS N HAVE YOU BEEN HOSPITALIZ[facility] IN THE PAST YEAR ? N ATHEROSCLEROSIS N BREAST PROBLEMS N DIALYSIS N ECZEMA N OSTEOPOROSIS N ARTHRITIS Y APPENDICITIS N DIABETES, TYPE N BAD TEETH N ENT N HEARTBURN / REFLUX N AUTISM SPECTRUM DISORDER (ASD) N HEPATITIS / LIVER DISEASE N GOUT N SLEEP DISORDER N ALZHEIMER'S DISEASE N Brain Problems N DEMENTIA N HERPES N SEIZURES/EPILEPSY N HEADACHES/MIGRAINES N VASCULAR DISEASE N PACEMAKER N Blood Disorder N DIZZINESS N HEART DISEASE/HEART PROBLEMS N KIDNEY DISEASE N MULTIPLE SCLEROSIS N CANCER: SPECIFY N CARDIAC ARRHYTHMIA N ATRIAL FIBRILLATION N Gall Stones N PULMONARY EMBOLISM N AUTOIMMUNE DISEASE N Gynecological HistoryNo gynecological history recorded. Obstetrics History GPAL:G 0 P 0 0 0 0 Immunizations Vaccine Type Date Status Note Provider Nam e and Address Organization Details Recorded Time Influenza, split virus, trivalent, preservative 3 completed Not Available [facility] 02/24/2023 03:13:37 COVID-19, mRNA, LNP-S, PF, 100 mcg/0.5mL dose or 50 mcg/0.25mL dose 1 completed Not Available [facility] 02/24/2023 03:13:37 COVID-19, mRNA, LNP-S, PF, 100 mcg/0.5mL dose or 50 mcg/0.25mL dose 1 completed Not Available [facility] 02/24/2023 03:13:37 COVID-19, mRNA, LNP-S, PF, 100 mcg/0.5mL dose or 50 mcg/0.25mL dose 1 completed Not Available [facility] 02/24/2023 03:13:37 Influenza, high-dose, quadrivalent, PF 0 completed Not Available [facility] 02/24/2023 03:13:37 Influenza, high-dose, trivalent, PF 9 completed Not Available [facility] 02/24/2023 03:13:37 influenza, unspecified formulation 8 completed Not Available [facility] 02/24/2023 03:13:37 Tdap 6 completed Not Available [facility] 02/24/2023 03:13:37 Influenza, high-dose, quadrivalent, PF 1 completed Not Available [facility] 02/24/2023 03:13:37 pneumococcal polysaccharide PPV23 9 completed Not Available [facility] 02/24/2023 03:13:37 Pneumococcal conjugate PCV 13 8 completed Not Available [facility] 02/24/2023 03:13:37 Influenza, split virus, trivalent, PF 4 completed Not Available [facility] 02/24/2023 03:13:37 Past Encounters Encounter ID Performer Location Encounter Start Date Encounter Closed Date Diagnosis/Indication Diagnosis SNOMED-CT Code Diagnosis ICD10 Code Diagnosis Note [id number] [facility] [place] [place] [address] 12/12/2020 00:00:00 12/12/2020 22:01:46 [id number] Freddy English MD [facility] Internal Med [place] [address] [place] [address] 05/20/2021 00:00:00 05/23/2021 12:14:54 [id number] Freddy English MD [facility] Internal Med [facility] [address] [place] [address] 10/13/2021 00:00:00 10/13/2021 21:09:44 [id number] Freddy English MD [facility] Internal Med [place] [address] [facility] [place] [address] 11/25/2021 00:00:00 12/01/2021 23:42:44 [id number] Freddy English MD [facility] Internal Med [place] [address] [facility] [place] [address] 06/30/2022 00:00:00 07/22/2022 12:18:14 [id number] Freddy English MD [facility] Internal Med [place] [address] [facility] [address] , [place] [address] 01/19/2023 15:06:33 01/19/2023 16:46:37 Adult health examination 003780037 Z00.00 Screening for disorder 533531199 Z13.9 Benign ess ential hypertension 4183934 I10 Osteoarthritis 449200033 M19.90 Pure hypercholesterolemia 687129806 E78.00 Anxiety 54655694 F41.9 [id number] Freddy English MD [facility] Internal Med [place] [address] [facility] [address] , [place] [address] 07/20/2023 11:41:20 07/20/2023 13:22:53 Osteoarthritis 478561191 M19.90 Anxiety 14251444 F41.9 Benign ess ential hypertension 8629820 I10 Pure hypercholesterolemia 971820924 E78.00 Health Concerns Section Related Observation LastModified by Organization Detai ls LastModified Time None Recorded Concern Status LastModified by Organization Details LastModified Time None Recorded Advance Directives Directive Y: Payers Encounter Date Sequence Insurance Name Policy Number Policy Jensen Covered Member ID Jensen Member ID Guarantor Name 01/19/2023 1 [place] Meredith Wu Bj [id number] Meredith Wu Bj 01/19/2023 2 [place] 104 Meredith Wu Bj [id number] Meredith Wu Bj 07/20/2023 1 [place] Meredith Wu Bj [id number] Meredith Wu Bj 07/20/2023 2 [place] 104 Meredith Lorenzo [id number] Meredith Lorenzo Notes Date Note Type Note Provider Name and Address Organization Details Recorded Time 01/19/2023 text/html hypertension no headache no dizziness arthritis seems to be doing fine anxiety is stable rhinitis has been doing well Freddy English MD [address], [place], [address], [employer] 01/19/2023 21:24:39 07/20/2023 text/html hypertension no headache no dizziness arthritis seems to be doing fine anxiety is stable rhinitis has been doing well. She messed up her right thumb jammed it is still sore but she has got good range of motion. And her specialist wants to put her on raloxifene for osteopenia and breast cancer preventive measure Freddy English MD [address], [place], [address], [employer] 07/20/2023 13:51:22 OBGyn Episode No OBEpisode recorded.
--- OUTSIDE RECORDS SUMMARY | 2024-12-26 00:41 | XMS_ITS | Referral Summary ---
Author Organization [facility] Address [address] [place] [address] Care Team Providers Care Catheter Finisher And Inspector Name Role Phone Dayron English MD Primary Care Provider [phone] Allergies Active Allergy Reactions Criticality Noted Date Comments Escitalopram Shortness of breath High Hydrocodone Vomiting Low 12/10/2020 Aquowtr-Tqe-Dht Reductase Inhibitors Muscle pain High 10/12/2023 Medications amLODIPine (NORVASC) 5 mg tabletIndicatio ns:hypertension Take 1 tablet (5 mg total) by mouth nightly 1 Active ezetimibe (ZETIA) 10 mg tabletIndicatio ns:hyperlipidem ia Take 1 tablet (10 mg total) by mouth nightly 1 Active LORazepam (ATIVAN) 0.5 mg tablet Take 1 tablet (0.5 mg total) by mouth 2 (two) times a day as needed for anxiety 1 Active traMADoL (ULTRAM) 50 mg tablet Take 1 tablet (50 mg total) by mouth every 8 (eight) hours as needed for pain 1 Active cholecalciferol (VITAMIN D-3) 25 mcg (1,000 unit) tabletIndicatio ns:Vitamin D Deficiency Take 1 tablet (1,000 Units total) by mouth 3 (three) times a week Active multivitamin capsuleIndicati ons:Vitamin Deficiency Prevention Take 1 capsule by mouth nightly Active aspirin 81 mg enteric coated tabletIndicatio ns:prevention of thrombosis Take 1 tablet (81 mg total) by mouth nightly Active acetaminophen (TYLENOL) 500 mg tabletIndicatio ns:Pain Take 2 tablets (1,000 mg total) by mouth every 6 (six) hours as needed for pain Active timoloL (ISTALOL) 0.5 % drops, once daily ophthalmic solution INSTILL 1 DROP IN BOTH EYES EVERY MORNING 4 Active bimatoprost (LUMIGAN) 0.03 % ophthalmic dropsIndication s:open angle glaucoma Administer 1 drop into the left eye nightly 2.5 mL 11 4 Active Active Problems Problem Noted Date Diagnosed Date Esophoria of both eyes 01/04/2024 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 Assessment & Plan (01/04/2024 1:38 PM CDT): Release updated Rx with prism Primary open angle glaucoma (POAG) of right eye, mild stage 11/22/2023 Primary open angle glaucoma of both eyes, indeterminate stage 10/15/2023 Combined forms of age-related cataract of right eye 09/23/2023 Posterior capsular opacification, left Primary open angle glaucoma (POAG) of both eyes, indeterminate stage 09/23/2023 Family history of breast cancer 07/15/2022 Dense breast tissue on mammogram 07/15/2022 Encounter for screening mammogram for breast can cer 07/15/2022 Vertigo 10/13/2021 Benign essential hypertension 12/10/2020 Osteoarthritis 02/08/2020 Scar 09/08/2013 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 Immunizations Immunization Administration Dates Next Due Influenza, Trivalent, High D ose, Split, Preservative Free, Intramuscular 05/20/2021 Influenza, Trivalent, Preser vative Free, Intramuscular 05/23/2014 Moderna SARS-CoV-2 Monovalen t Vaccination (12+ YRS) 07/12/2021,10/15/2020,09/05/2020 Pneumococcal Conjugate PCV 13 09/08/2017 Pneumococcal Polysaccharide PPV23 11/22/2018 Social History Tobacco Use Types Packs/Day Years Used Date Smoking Tobacco: Former Cigarettes Passive Smoke Exposure: Never Smokeless Tobacco: Never Tobacco Cessation:Counseling Given: No Comments:Over 40 years ago, maybe 1 pack a week/ social AUDIT-C Answer Date Recorded Frequency of Alcohol Consumption Not on file 11/11/2023 Q2: How many drinks containi ng alcohol do you have on a typical day when you are drinking? Patient does not drink Frequency of Binge Drinking Not on file 10/31 Personal Safety Answer Date Recorded Have you ever been in or are you currently in a harmful physical or emotional relationship or is someone making you feel afraid or unsafe? 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 Gender Identity Not on file Sexual Orientation Not on file Last Filed Vital Signs Vital Sign Reading Time Taken Comments Blood Pressure 120/64 04/19/2024 1:03 PM CDT Pulse 64 04/19/2024 9:35 AM CDT Temperature 36.6 C (97.8 F) 04/19/2024 9:35 AM CDT Respiratory Rate 14 04/19/2024 9:35 AM CDT Oxygen Saturation 98% 04/19/2024 9:35 AM CDT Inhaled Oxygen Concentration - - Weight 60.7 kg (133 lb 12.8 oz) 04/19/2024 1:03 PM CDT Height 154.9 cm (5' 1 ) 04/19/2024 1:03 PM CDT Body Mass Index 25.28 04/19/2024 1:03 PM CDT Plan of Treatment Not on file Medical Devices Implanted Type 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 Device Identifier Shelf Expiration Date Model / Serial / Lot [email or web address] Lens Shaheed Stout Iol [id number] - [id number] - [id number] Implanted:Qty: 1 on 11/22/2023 by Alf Nance MD at [facility] Lens Right: Eye [email or web address] [id number] 03/19/2026 [id number] / [id number] / Procedures Procedure Name Priority Date/Time Associated Diagnosis Comments CONTRAST ENHANCED DIGITAL MAMMOGRAPHY BILATERAL Schedule Routine, Read Routine (OP Routine) 06/16/2024 2:08 PM FRAME OPERATOR Family history of breast cancer Heterogeneously dense tissue of both breasts on mammography Encounter for screening mammogram for breast cancer At high risk for breast cancer from Last 3 Months or Most Recently Relevant to Health Maintenance Results * Contrast Enhanced Digital Mammography Bilateral (06/16/2024 2:08 PM FRAME OPERATOR) Anatomical Region Laterality Modality Breast Bilateral Mammography 06/16/2024 3:11 PM FRAME OPERATOR Impressions 06/16/2024 3:11 PM FRAME OPERATOR No evidence of malignancy in either breast. OVERALL FINAL ASSESSMENT: BI-RADS Category 1: Negative. RECOMMENDATION: Annual screening mammography is recommended. Electronically signed by: Mely Mart M.D. Narrative 06/16/2024 3:11 PM FRAME OPERATOR EXAMINATION: BILATERAL CONTRAST ENHANCED DIGITAL DIAGNOSTIC MAMMOGRAM WITH DIGITAL BREAST TOMOSYNTHESIS HISTORY: 78-year-old woman with increased lifetime risk of breast cancer. COMPARISON: Multiple prior studies, most recently 04/09/2023 and dating back to 08/15/2020. TECHNIQUE: Full field digital mammographic views with digital breast tomosynthesis of BOTH breasts were performed including low energy and subtracted views following the uneventful administration of nonionic iodinated intravenous contrast material. CONTRAST: Optiray, 91 ml BREAST PARENCHYMAL COMPOSITION: The breasts are heterogeneously dense, which may obscure small masses. BACKGROUND PARENCHYMAL ENHANCEMENT: Minimal, symmetric FINDINGS: Low energy images: There are no suspicious masses, calcifications, or areas of architectural distortion. Subtraction images: There is no suspicious mass or non-mass enhancement. Procedure Note Mely Mart MD - 06/16/2024 EXAMINATION: BILATERAL CONTRAST ENHANCED DIGITAL DIAGNOSTIC MAMMOGRAM WITH DIGITAL BREAST TOMOSYNTHESIS HISTORY: 78-year-old woman with increased lifetime risk of breast cancer. COMPARISON: Multiple prior studies, most recently 04/09/2023 and dating back to 08/15/2020. TECHNIQUE: Full field digital mammographic views with digital breast tomosynthesis of BOTH breasts were performed including low energy and subtracted views following the uneventful administration of nonionic iodinated intravenous contrast material. CONTRAST: Optiray, 91 ml BREAST PARENCHYMAL COMPOSITION: The breasts are heterogeneously dense, which may obscure small masses. BACKGROUND PARENCHYMAL ENHANCEMENT: Minimal, symmetric FINDINGS: Low energy images: There are no suspicious masses, calcifications, or areas of architectural distortion. Subtraction images: There is no suspicious mass or non-mass enhancement. IMPRESSION: No evidence of malignancy in either breast. OVERALL FINAL ASSESSMENT: BI-RADS Category 1: Negative. RECOMMENDATION: Annual screening mammography is recommended. Electronically signed by: Mely Mart M.D. Melissa Clarke MD IMG MAMMO PROCEDURES Final Result from Last 3 Months or Most Recently Relevant to Health Maintenance Insurance MEDICARE [facility] [employer] [place] [id number] MEDICARE [facility] [employer] MEDICARE [facility] [employer] MCR SUPPLEMENT Care Teams Catheter Finisher And Inspector Relationship Specialty Start Date End Date Dayron English MD PCP - General Internal Medicine 11/01/20
--- OUTSIDE RECORDS SUMMARY | 2024-12-26 00:41 | XMS_ITS | Data Portability ---
[facility] [address] [place] [address] Care Team Providers Care Slasher Hand Name Role Phone FREDDY ENGLISH Primary Care Provider Assessment Encounter Date Assessment Date Assessment LastModified by Organization Details LastModified Time 03/03/2024 03/03/2024 blood pressure is stable we will continue current therapy blood work has been ordered anxiety chronic neck pain hypertension and dyslipidemia appear to be doing fine she will follow up with me in 4 months. she is due for a colonoscopy [email or web address] Not available 03/03/2024 15:07:13 05/01/2024 05/01/2024 assessments preventative checklist healthy lifestyle care instructions all immunizations and screenings ordered where patient agreeable and appropriate she will keep her follow up [email or web address] Not available 05/21/2024 16:16:08 07/06/2024 07/06/2024 we will continue current therapy blood work has been ordered as well as urinary screen all questions have been answered. [email or web address] Not available 07/08/2024 18:07:38 11/08/2024 11/08/2024 Continue current therapy she will follow up in months has a colonoscopy scheduled for December 26 [email or web address] Not available 11/18/2024 17:45:23 11/21/2024 11/21/2024 Erythromycin ointment warm compresses she does not wear contacts she will call if not improved [email or web address] Not available 11/26/2024 16:00:19 Plan of Treatment Reminders Order Date Submit Date Provider Last Modified By Organization Details Last Modified Time Details Appointments ANY 15 2024 11:00A Randi English MD Not available Not available Not available Lab drugs of abuse panel, blood 2023 025 [facility], [address], [place], [address], 09/20/2024 15:11:15 lipid panel, serum 2023 025 [facility], [address], [address], [place], [address], 09/20/2024 15:11:12 CMP, serum or plasma 2023 025 [facility], [address], [address], [place], [address], 09/20/2024 15:11:13 CBC w/ auto diff 2023 025 [facility], [address], [address], [place], [address], 09/20/2024 15:11:16 lipid panel, serum 2023 024 [facility], [address], [address], [place], [address], 06/27/2024 11:17:34 CMP, serum or plasma 2023 024 [facility], [address], [address], [place], [address], 06/27/2024 11:17:35 CBC w/ auto diff 2023 024 [facility], [address], [address], [place], [address], 06/27/2024 11:17:37 Referral None recorded. Procedures None recorded. Surgeries None recorded. Imaging None recorded. Medication Orders erythromy ale 5 mg/gram (0.5 %) eye ointment 2024 025 [email or web address] [facility] #[id number], [address], [place], [address], 11/21/2024 12:58:28 Patient TargetsNo targets recorded. Patient Instructions Encounter Date Encounter Id Patient Instructions Last Modified By Organization Details Last Modified Time 05/01/2024 [id number] A healthy lifestyle: care instructions [email or web address] Not available 05/01/2024 17:51:36 Medicare Wellnes s Preventive Checklist [email or web address] Not available 05/01/2024 12:15:10 11/08/2024 [id number] A healthy lifestyle: care instructions Not available 11/08/2024 15:31:28 11/21/2024 [id number] A healthy lifestyle: care instructions [email or web address] Not available 11/21/2024 12:58:28 Reason for Referral None Reported. Results Created Date Observation Date Name Description Value Unit Range Abnormal Flag Note LastModifiedBy Organization Detail LastModifiedTime 06/26/2006/27/2024 LIPID PANEL cholesterol, total 213 mg/dL 100-19 9 above high normal Not Available [facility] ([facility]) [address] [facility], [place], [address], 06/27/2024 11:17:34 06/26/2006/27/2024 LIPID PANEL triglyceride s 88 mg/dL 0-149 Not Available [facility] ([facility]) [address] [facility], [place], [address], 06/27/2024 11:17:34 06/26/2006/27/2024 LIPID PANEL HDL cholesterol 60 mg/dL >39 Not Available [facility] ([facility]) [address] [place], [address], 06/27/2024 11:17:34 06/26/20 24 06/27/2024 LIPID PANEL VLDL cholesterol leisa 16 mg/dL 5-40 Not Available [facility] ([facility]) [address] [facility], [place], [address], 06/27/2024 11:17:34 06/26/20 24 06/27/2024 LIPID PANEL LDL chol [facility] 137 mg/dL 0-99 above high normal Not Available [facility] ([facility]) [address] [place], [address], 06/27/2024 11:17:34 06/26/20 24 06/27/2024 COMP. METAB OLIC PANEL (14) glucose 93 mg/dL 70-99 Not Available [facility] ([facility]) [address] [place], [address], 06/27/2024 11:17:35 06/26/20 24 06/27/2024 COMP. METAB OLIC PANEL (14) BUN 16 mg/dL 8-27 Not Available [facility] ([facility]) [address] [place], [address], 06/27/2024 11:17:35 06/26/20 24 06/27/2024 COMP. METAB OLIC PANEL (14) creatinine 0.66 mg/dL 0.57-1 .00 Not Available [facility] ([facility]) [address] [place], [address], 06/27/2024 11:17:35 06/26/20 24 06/27/2024 COMP. METAB OLIC PANEL (14) eGFR 91 mL/mi n/1.7 3 >59 Not Available [facility] ([facility]) [address] [place], [address], 06/27/2024 11:17:35 06/26/20 24 06/27/2024 COMP. METAB OLIC PANEL (14) BUN/creatini ne ratio 24 12-28 Not Available [facility] ([facility]) [address] [place], [address], 06/27/2024 11:17:35 06/26/20 24 06/27/2024 COMP. METAB OLIC PANEL (14) sodium 135 mmol/ L 134-14 4 Not Available [facility] ([facility]) [address] [place], [address], 06/27/2024 11:17:35 06/26/20 24 06/27/2024 COMP. METAB OLIC PANEL (14) potassium 4.5 mmol/ L 3.5-5. 2 Not Available [facility] ([facility]) [address] [facility], [place], [address], 06/27/2024 11:17:35 06/26/20 24 06/27/2024 COMP. METAB OLIC PANEL (14) chloride 97 mmol/ L 96-106 Not Available [facility] ([facility]) [address] [facility], [place], [address], 06/27/2024 11:17:35 06/26/20 24 06/27/2024 COMP. METAB OLIC PANEL (14) carbon dioxide, total 25 mmol/ L 20-29 Not Available [facility] ([facility]) [address] [facility], [place], [address], 06/27/2024 11:17:35 06/26/20 24 06/27/2024 COMP. METAB OLIC PANEL (14) calcium 9.7 mg/dL 8.7-10 .3 Not Available [facility] ([facility]) [address] [facility], [place], [address], 06/27/2024 11:17:35 06/26/20 24 06/27/2024 COMP. METAB OLIC PANEL (14) protein, total 7.2 g/dL 6.0-8. 5 Not Available [facility] ([facility]) [address] [facility] [place], [address], 06/27/2024 11:17:35 06/26/20 24 06/27/2024 COMP. METAB OLIC PANEL (14) albumin 4.3 g/dL 3.8-4. 8 Not Available [facility] ([facility]) [address] [facility], [place], [address], 06/27/2024 11:17:35 06/26/20 24 06/27/2024 COMP. METAB OLIC PANEL (14) globulin, total 2.9 g/dL 1.5-4. 5 Not Available [facility] ([facility]) [address] [place], [address], 06/27/2024 11:17:35 06/26/20 24 06/27/2024 COMP. METAB OLIC PANEL (14) bilirubin, total 0.4 mg/dL 0.0-1. 2 Not Available [facility] ([facility]) [address] [place], [address], 06/27/2024 11:17:35 06/26/20 24 06/27/2024 COMP. METAB OLIC PANEL (14) alkaline phosphatase 101 IU/L 44-121 Not Available [facility] ([facility]) [address] [place], [address], 06/27/2024 11:17:35 06/26/20 24 06/27/2024 COMP. METAB OLIC PANEL (14) AST (SGOT) 23 IU/L 0-40 Not Available [facility] ([facility]) [address] [place], [address], 06/27/2024 11:17:35 06/26/20 24 06/27/2024 COMP. METAB OLIC PANEL (14) ALT (SGPT) 18 IU/L 0-32 Not Available [facility] ([facility]) [address] [place], [address], 06/27/2024 11:17:35 06/26/20 24 06/27/2024 CBC WITH DIFFE RENTI AL/PL ATELE T WBC 11.6 x10e3 /uL 3.4-10 .8 above high normal Eff ectiv e Decem 2023 [place] [id number] 5 WBC will be made* * non-o rdera ble as a stand -gloria e order code. Not Available [facility] ([facility]) [address] [facility], [place], [address], 06/27/2024 11:17:37 06/26/20 24 06/27/2024 CBC WITH DIFFE RENTI AL/PL ATELE T RBC 4.33 x10e6 /uL 3.77-5 .28 Not Available [facility] ([facility]) [address] [facility], [place], [address], 06/27/2024 11:17:37 06/26/20 24 06/27/2024 CBC WITH DIFFE RENTI AL/PL ATELE T hemoglobin 12.1 g/dL 11.1-1 5.9 Not Available [facility] ([facility]) [address] [facility], [place], [address], 06/27/2024 11:17:37 06/26/20 24 06/27/2024 CBC WITH DIFFE RENTI AL/PL ATELE T hematocrit 39.1 % 34.0-4 6.6 Not Available [facility] ([facility]) [address] [facility], [place], [address], 06/27/2024 11:17:37 06/26/20 24 06/27/2024 CBC WITH DIFFE RENTI AL/PL ATELE T MCV 90 fL 79-97 Not Available [facility] ([facility]) [address] [facility], [place], [address], 06/27/2024 11:17:37 06/26/2006/27/2024 CBC WITH DIFFE RENTI AL/PL ATELE T MCH 27.9 pg 26.6-3 3.0 Not Available [facility] ([facility]) [address] [place], [address], 06/27/2024 11:17:37 06/26/20 24 06/27/2024 CBC WITH DIFFE RENTI AL/PL ATELE T MCHC 30.9 g/dL 31.5-3 5.7 below low normal Not Available [facility] ([facility]) [address] [facility], [place], [address], 06/27/2024 11:17:37 06/26/20 24 06/27/2024 CBC WITH DIFFE RENTI AL/PL ATELE T RDW 12.5 % 11.7-1 5.4 Not Available [facility] ([facility]) [address] [facility], [place], [address], 06/27/2024 11:17:37 06/26/20 24 06/27/2024 CBC WITH DIFFE RENTI AL/PL ATELE T platelets 452 x10e3 /uL 150-45 0 above high normal Not Available [facility] ([facility]) [address] [facility], [place], [address], 06/27/2024 11:17:37 06/26/20 24 06/27/2024 CBC WITH DIFFE RENTI AL/PL ATELE T neutrophils 58 % notest ab. Not Available [facility] ([facility]) [address] [facility], [place], [address], 06/27/2024 11:17:37 06/26/20 24 06/27/2024 CBC WITH DIFFE RENTI AL/PL ATELE T lymphs 22 % notest ab. Not Available [facility] ([facility]) [address] [facility], [place], [address], 06/27/2024 11:17:37 06/26/20 24 06/27/2024 CBC WITH DIFFE RENTI AL/PL ATELE T monocytes 11 % notest ab. Not Available [facility] ([facility]) [address] [facility], [place], [address], 06/27/2024 11:17:37 06/26/20 24 06/27/2024 CBC WITH DIFFE RENTI AL/PL ATELE T eos 7 % notest ab. Not Available [facility] ([facility]) [address] [facility], [place], [address], 06/27/2024 11:17:37 06/26/20 24 06/27/2024 CBC WITH DIFFE RENTI AL/PL ATELE T basos 1 % notest ab. Not Available [facility] ([facility]) [address] [facility], [place], [address], 06/27/2024 11:17:37 06/26/20 24 06/27/2024 CBC WITH DIFFE RENTI AL/PL ATELE T neutrophils (absolute) 6.8 x10e3 /uL 1.4-7. 0 Not Available [facility] ([facility]) [address] [place], [address], 06/27/2024 11:17:37 06/26/20 24 06/27/2024 CBC WITH DIFFE RENTI AL/PL ATELE T lymphs (absolute) 2.6 x10e3 /uL 0.7-3. 1 Not Available [facility] ([facility]) [address] [place], [address], 06/27/2024 11:17:37 06/26/20 24 06/27/2024 CBC WITH DIFFE RENTI AL/PL ATELE T monocytes(ab solute) 1.2 x10e3 /uL 0.1-0. 9 above high normal Not Available [facility] ([facility]) [address] [place], [address], 06/27/2024 11:17:37 06/26/20 24 06/27/2024 CBC WITH DIFFE RENTI AL/PL ATELE T eos (absolute) 0.8 x10e3 /uL 0.0-0. 4 above high normal Not Available [facility] ([facility]) [address] [place], [address], 06/27/2024 11:17:37 06/26/20 24 06/27/2024 CBC WITH DIFFE RENTI AL/PL ATELE T baso (absolute) 0.1 x10e3 /uL 0.0-0. 2 Not Available [facility] ([facility]) [address] [facility], [place], [address], 06/27/2024 11:17:37 06/26/20 24 06/27/2024 CBC WITH DIFFE RENTI AL/PL ATELE T immature granulocytes 1 % notest ab. Not Available [facility] ([facility]) [address] [facility], [place], [address], 06/27/2024 11:17:37 06/26/20 24 06/27/2024 CBC WITH DIFFE RENTI AL/PL ATELE T immature grans (abs) 0.1 x10e3 /uL 0.0-0. 1 Not Available [facility] ([facility]) [address] [facility], [place], [address], 06/27/2024 11:17:37 09/08/19 25 09/09/2024 LIPID PANEL cholesterol, total 244 mg/dL 100-19 9 above high normal Not Available [facility] ([facility]) [address] [facility], [place], [address], 09/20/2024 15:11:12 09/08/19 25 09/09/2024 LIPID PANEL triglyceride s 145 mg/dL 0-149 Not Available [facility] ([facility]) [address] [place], [address], 09/20/2024 15:11:12 09/08/19 25 09/09/2024 LIPID PANEL HDL cholesterol 55 mg/dL >39 Not Available [facility] ([facility]) [address] [place], [address], 09/20/2024 15:11:12 09/08/19 25 09/09/2024 LIPID PANEL VLDL cholesterol leisa 26 mg/dL 5-40 Not Available [facility] ([facility]) [address] [place], [address], 09/20/2024 15:11:12 09/08/19 25 09/09/2024 LIPID PANEL LDL chol calc ([facility]) 163 mg/dL 0-99 above high normal Not Available [facility] ([facility]) [address] [place], [address], 09/20/2024 15:11:12 09/08/19 25 09/09/2024 COMP. METAB OLIC PANEL (14) glucose 85 mg/dL 70-99 Not Available [facility] ([facility]) [address] [place], [address], 09/20/2024 15:11:13 09/08/19 25 09/09/2024 COMP. METAB OLIC PANEL (14) BUN 13 mg/dL 8-27 Not Available [facility] ([facility]) [address] [place], [address], 09/20/2024 15:11:13 09/08/19 25 09/09/2024 COMP. METAB OLIC PANEL (14) creatinine 0.69 mg/dL 0.57-1 .00 Not Available [facility] ([facility]) [address] [place], [address], 09/20/2024 15:11:13 09/08/19 25 09/09/2024 COMP. METAB OLIC PANEL (14) eGFR 90 mL/mi n/1.7 3 >59 Not Available [facility] ([facility]) [address] [place], [address], 09/20/2024 15:11:13 09/08/19 25 09/09/2024 COMP. METAB OLIC PANEL (14) BUN/creatini ne ratio 19 12-28 Not Available [facility] ([facility]) [address] [place], [address], 09/20/2024 15:11:13 09/08/19 25 09/09/2024 COMP. METAB OLIC PANEL (14) sodium 137 mmol/ L 134-14 4 Not Available [facility] ([facility]) [address] [place], [address], 09/20/2024 15:11:13 09/08/19 25 09/09/2024 COMP. METAB OLIC PANEL (14) potassium 4.9 mmol/ L 3.5-5. 2 Not Available [facility] ([facility]) [address] [place], [address], 09/20/2024 15:11:13 09/08/19 25 09/09/2024 COMP. METAB OLIC PANEL (14) chloride 98 mmol/ L 96-106 Not Available [facility] ([facility]) [address] [place], [address], 09/20/2024 15:11:13 09/08/19 25 09/09/2024 COMP. METAB OLIC PANEL (14) carbon dioxide, total 25 mmol/ L 20-29 Not Available [facility] ([facility] [address] [facility] [place] [address], 09/20/2024 15:11:13 09/08/19 25 09/09/2024 COMP. METAB OLIC PANEL (14) calcium 9.8 mg/dL 8.7-10 .3 Not Available [facility] ([facility] [address] [facility] [place], [address], 09/20/2024 15:11:13 09/08/19 25 09/09/2024 COMP. METAB OLIC PANEL (14) protein, total 7.2 g/dL 6.0-8. 5 Not Available [facility] ([facility]) [address] [facility] [place], [address], 09/20/2024 15:11:13 09/08/19 25 09/09/2024 COMP. METAB OLIC PANEL (14) albumin 4.3 g/dL 3.8-4. 8 Not Available [facility] ([facility]) [address] [facility] [place], [address], 09/20/2024 15:11:13 09/08/19 25 09/09/2024 COMP. METAB OLIC PANEL (14) globulin, total 2.9 g/dL 1.5-4. 5 Not Available [facility] ([facility]) [address] [place], [address], 09/20/2024 15:11:13 09/08/19 25 09/09/2024 COMP. METAB OLIC PANEL (14) bilirubin, total 0.4 mg/dL 0.0-1. 2 Not Available [facility] ([facility]) [address] [place], [address], 09/20/2024 15:11:13 09/08/19 25 09/09/2024 COMP. METAB OLIC PANEL (14) alkaline phosphatase 85 IU/L 44-121 Not Available [facility] ([facility]) [address] [place], [address], 09/20/2024 15:11:13 09/08/19 25 09/09/2024 COMP. METAB OLIC PANEL (14) AST (SGOT) 24 IU/L 0-40 Not Available [facility] ([facility]) [address] [place], [address], 09/20/2024 15:11:13 09/08/19 25 09/09/2024 COMP. METAB OLIC PANEL (14) ALT (SGPT) 16 IU/L 0-32 Not Available [facility] ([facility]) [address] [place], [address], 09/20/2024 15:11:13 09/08/19 25 09/20/2024 TRAMA DOL,M S,WB/ SP RFX tramadol confirmation Positi ve Not Available [facility] ([facility]) [address] [place], [address], 09/20/2024 15:11:15 09/08/19 25 09/20/2024 TRAMA DOL,M S,WB/ SP RFX tramadol 176.9 NG/mL Not Available [facility] ([facility]) [address] [place], [address], 09/20/2024 15:11:15 09/08/19 25 09/20/2024 TRAMA DOL,M S,WB/ SP RFX O-desmethylt ramadol 37.3 NG/mL Confi rmati on thres hold: 10 ng/mL Not Available [facility] ([facility]) [address] [place], [address], 09/20/2024 15:11:15 09/08/19 25 09/20/2024 DRUG SCREE N 13 W/CON F, SERUM amphetamines , ia NEGATI VE NG/mL cutoff :50 Not Available [facility] ([facility]) [address] [place], [address], 09/20/2024 15:11:15 09/08/19 25 09/20/2024 DRUG SCREE N 13 W/CON F, SERUM barbiturates , ia NEGATI VE ug/mL cutoff :0.1 Not Available [facility] ([facility]) [address] [place], [address], 09/20/2024 15:11:15 09/08/19 25 09/20/2024 DRUG SCREE N 13 W/CON F, SERUM benzodiazepi ramya, ia NEGATI VE NG/mL cutoff :20 Not Available [facility] ([facility]) [address] [place], [address], 09/20/2024 15:11:15 09/08/19 25 09/20/2024 DRUG SCREE N 13 W/CON F, SERUM cocaine / metabolite, ia NEGATI VE NG/mL cutoff :25 Not Available [facility] ([facility]) [address] [place], [address], 09/20/2024 15:11:15 02/07/20 25 09/20/2024 DRUG SCREE N 13 W/CON F, SERUM phencyclidin e, ia NEGATI VE NG/mL cutoff :8 Not Available [facility] ([facility]) [address] [place], [address], 09/20/2024 15:11:15 09/08/19 25 09/20/2024 DRUG SCREE N 13 W/CON F, SERUM THC(marijuan a) metabolite, ia NEGATI VE NG/mL cutoff :5 Not Available [facility] ([facility]) [address] [place], [address], 09/20/2024 15:11:15 09/08/19 25 09/20/2024 DRUG SCREE N 13 W/CON F, SERUM opiates, ia NEGATI VE NG/mL cutoff :5 Not Available [facility] ([facility]) [address] [place], [address], 09/20/2024 15:11:15 09/08/19 25 09/20/2024 DRUG SCREE N 13 W/CON F, SERUM oxycodones, ia NEGATI VE NG/mL cutoff :5 Not Available [facility] ([facility]) [address] [place], [address], 09/20/2024 15:11:15 09/08/19 25 09/20/2024 DRUG SCREE N 13 W/CON F, SERUM methadone, ia NEGATI VE NG/mL cutoff :25 Not Available [facility] ([facility]) [address] [place], [address], 09/20/2024 15:11:15 09/08/19 25 09/20/2024 DRUG SCREE N 13 W/CON F, SERUM fentanyl, ia NEGATI VE NG/mL cutoff :1.0 Not Available [facility] ([facility]) [address] [place], [address], 09/20/2024 15:11:15 09/08/19 25 09/20/2024 DRUG SCREE N 13 W/CON F, SERUM propoxyphene , ia NEGATI VE NG/mL cutoff :50 Not Available [facility] ([facility]) [address] [facility] [place], [address], 09/20/2024 15:11:15 09/08/19 25 09/20/2024 DRUG SCREE N 13 W/CON F, SERUM meperidine, ia NEGATI VE NG/mL cutoff :100 Not Available [facility] ([facility]) [address] [facility] [place], [address], 09/20/2024 15:11:15 09/08/19 25 09/20/2024 DRUG SCREE N 13 W/CON F, SERUM tramadol, ia ++POSI TIVE++ NG/mL cutoff :50 abnormal This test was devel joseph and its perfo rmanc e matty cteri stics deter mined by [facility]. It has not been clear ed or appro katie by the Food and Drug Admin istra tion. Not Available [facility] ([facility]) [address] [facility] [place], [address], 09/20/2024 15:11:15 09/08/19 25 09/09/2024 CBC WITH DIFFE RENTI AL/PL ATELE T WBC 7.9 x10e3 /uL 3.4-10 .8 Not Available [facility] ([facility]) [address] [place], [address], 09/20/2024 15:11:16 09/08/19 25 09/09/2024 CBC WITH DIFFE RENTI AL/PL ATELE T RBC 4.47 x10e6 /uL 3.77-5 .28 Not Available [facility] ([facility]) [address] [place], [address], 09/20/2024 15:11:16 09/08/19 25 09/09/2024 CBC WITH DIFFE RENTI AL/PL ATELE T hemoglobin 12.3 g/dL 11.1-1 5.9 Not Available [facility] ([facility]) [address] [place], [address], 09/20/2024 15:11:16 09/08/19 25 09/09/2024 CBC WITH DIFFE RENTI AL/PL ATELE T hematocrit 40.2 % 34.0-4 6.6 Not Available [facility] ([facility]) [address] [place], [address], 09/20/2024 15:11:16 09/08/19 25 09/09/2024 CBC WITH DIFFE RENTI AL/PL ATELE T MCV 90 fL 79-97 Not Available [facility] ([facility]) [address] [place], [address], 09/20/2024 15:11:16 09/08/19 25 09/09/2024 CBC WITH DIFFE RENTI AL/PL ATELE T MCH 27.5 pg 26.6-3 3.0 Not Available [facility] ([facility]) [address] [place], [address], 09/20/2024 15:11:16 09/08/19 25 09/09/2024 CBC WITH DIFFE RENTI AL/PL ATELE T MCHC 30.6 g/dL 31.5-3 5.7 below low normal Not Available [facility] ([facility]) [address] [place], [address], 09/20/2024 15:11:16 09/08/19 25 09/09/2024 CBC WITH DIFFE RENTI AL/PL ATELE T RDW 12.7 % 11.7-1 5.4 Not Available [facility] ([facility]) [address] [place], [address], 09/20/2024 15:11:16 09/08/19 25 09/09/2024 CBC WITH DIFFE RENTI AL/PL ATELE T platelets 405 x10e3 /uL 150-45 0 Not Available [facility] ([facility]) [address] [facility] [place], [address], 09/20/2024 15:11:16 09/08/19 25 09/09/2024 CBC WITH DIFFE RENTI AL/PL ATELE T neutrophils 42 % notest ab. Not Available [facility] ([facility]) [address] [facility] [place], [address], 09/20/2024 15:11:16 09/08/19 25 09/09/2024 CBC WITH DIFFE RENTI AL/PL ATELE T lymphs 40 % notest ab. Not Available [facility] ([facility]) [address] [facility] [place], [address], 09/20/2024 15:11:16 09/08/19 25 09/09/2024 CBC WITH DIFFE RENTI AL/PL ATELE T monocytes 11 % notest ab. Not Available [facility] ([facility]) [address] [facility], [place], [address], 09/20/2024 15:11:16 09/08/19 25 09/09/2024 CBC WITH DIFFE RENTI AL/PL ATELE T eos 6 % notest ab. Not Available [facility] ([facility]) [address] [facility], [place], [address], 09/20/2024 15:11:16 09/08/19 25 09/09/2024 CBC WITH DIFFE RENTI AL/PL ATELE T basos 1 % notest ab. Not Available [facility] ([facility]) [address] [facility], [place], [address], 09/20/2024 15:11:16 09/08/19 25 09/09/2024 CBC WITH DIFFE RENTI AL/PL ATELE T neutrophils (absolute) 3.3 x10e3 /uL 1.4-7. 0 Not Available [facility] ([facility]) [address] [facility] [place], [address], 09/20/2024 15:11:16 09/08/19 25 09/09/2024 CBC WITH DIFFE RENTI AL/PL ATELE T lymphs (absolute) 3.2 x10e3 /uL 0.7-3. 1 above high normal Not Available [facility] Lab) [address] [place], [address], 09/20/2024 15:11:16 09/08/19 25 09/09/2024 CBC WITH DIFFE RENTI AL/PL ATELE T monocytes(ab solute) 0.8 x10e3 /uL 0.1-0. 9 Not Available [facility] ([facility]) [address] [facility], [place], [address], 09/20/2024 15:11:16 09/08/19 25 09/09/2024 CBC WITH DIFFE RENTI AL/PL ATELE T eos (absolute) 0.5 x10e3 /uL 0.0-0. 4 above high normal Not Available [facility] ([facility]) [address] [facility], [place], [address], 09/20/2024 15:11:16 09/08/19 25 09/09/2024 CBC WITH DIFFE RENTI AL/PL ATELE T baso (absolute) 0.1 x10e3 /uL 0.0-0. 2 Not Available [facility] ([facility]) [address] [place], [address], 09/20/2024 15:11:16 09/08/19 25 09/09/2024 CBC WITH DIFFE RENTI AL/PL ATELE T immature granulocytes 0 % notest ab. Not Available [facility] ([facility]) [address] [place], [address], 09/20/2024 15:11:16 09/08/19 25 09/09/2024 CBC WITH DIFFE RENTI AL/PL ATELE T immature grans (abs) 0.0 x10e3 /uL 0.0-0. 1 Not Available [facility] ([facility]) [address] [facility], [place], [address], 09/20/2024 15:11:16 09/28/19 25 09/29/2024 MICRO SCOPI C EXAMI NATIO N WBC >30 /hpf 0-5 abnormal Not Available [facility] ([facility]) [address] [facility], [place], [address], 09/29/2024 07:07:51 09/28/19 25 09/29/2024 MICRO SCOPI C EXAMI NATIO N RBC 3-10 /hpf 0-2 abnormal Not Available [facility] ([facility]) [address] [facility], [place], [address], 09/29/2024 07:07:51 09/28/19 25 09/29/2024 MICRO SCOPI C EXAMI NATIO N epithelial cells (non renal) 0-10 /hpf 0-10 Not Available [facility] ([facility]) [address] [facility], [place], [address], 09/29/2024 07:07:51 09/28/19 25 09/29/2024 MICRO SCOPI C EXAMI NATIO N casts NONE SEEN /lpf nonese en Not Available [facility] ([facility]) [address] [facility], [place], [address], 09/29/2024 07:07:51 09/28/19 25 09/29/2024 MICRO SCOPI C EXAMI NATIO N bacteria MANY nonese en/few abnormal Not Available [facility] ([facility]) [address] [facility], [place], [address], 09/29/2024 07:07:51 09/28/19 25 09/30/2024 URINE CULTU RE, ROUTI NE urine culture, routine FINAL REPORT Not Available [facility] ([facility]) [address] [facility], [place], [address], 09/30/2024 07:07:51 09/28/1909/30/2024 URINE CULTU RE, ROUTI NE result 1 COMMEN T Cultu re shows less than 10,00 0 colon y formi ng units of bacte jose per janes liter of urine . This colon y count is not gener ally consi dered to be clini mariana signi fican t. Not Available [facility] ([facility]) [address] [facility], [place], [address], 09/30/2024 07:07:51 11/25/1911/25/2024 MEASL ES ANTIB ODIES , IGG measles antibodies, IgG >300.0 AU/mL immune >16.4 Negat chaka <13.5 Equiv ocal 13.5 - 16.4 Posit chaka >16.4 Prese nce of antib odies to Rubeo la is presu mptiv e evide nce of immun ity excep t when acute infec tion is suspe cted. Not Available [facility] ([facility]) [address] [facility], [place], [address], 11/25/2024 09:18:46 06/16/20 24 06/16/2024 MAMMO , scree jasmine, digit al, bilat eral No observ ation record ed. [facility] [address] [place], [address], 06/23/2024 09:29:55 Result Notes None recorded. Problems Name Problem SNOMED Code Status Onset Date Resolution Date Notes Provider Name and Address Organization Details Recorded Time Chronic neck pain 3663314374545 Active 2023 Freddy English MD Attn: Patricia rucker,[address] [facility], [place], [address], [facility] 13:37:51 Anxiety 97606965 Active 2023 Freddy English MD Attn: Patricia rucker,[address] [facility], [place], [address], [place] - [place] 4 13:37:53 Hyperlipide tip 96331454 Active 2023 Freddy English MD Attn: Patricia rucker,[address], [place], [address], [facility] - [facility] 4 13:37:54 Essential hypertensio n 49382789 Active 2023 TARSHA Bolanos, [place] - [place] 4 13:45:57 Blepharitis of right upper eyelid 5400638448400 07 Active 2024 TARSHA Bolanos, [place] - [place] 5 12:36:50 Problem Notes None recorded. Procedures Surgical History Date Name Laterality Status Provider Name and Address Organization Details Recorded Time Eye Surgery completed Ronit Stone MA [facility] 11/05/2023 12:56:18 ligation of bilateral fallopian tubes completed Ronit Stone MA [facility] 11/05/2023 12:56:27 Dilation and Curettage completed Ronit Stone MA [facility] 11/05/2023 12:56:32 Imaging Results None recorded. Procedure Notes None recorded. Medical Equipment None Reported. Allergies Allergen ID Allergen Name Allergen Category Reaction Reaction Severity Criticality Documentation Date Start Date Code Code System Note Provider Name and Address Organization Details Recorded Time 936685 Lexapro medicatio n dyspnea Not available Not available 11/05/2023 01849 1 RxNorm TARSHA Rocha, [facility] 4 12:55:46 182352 hydrocodo ne Not available vomiting Not available low 11/05/20232020 5489 RxNorm TARSHA Dahl, [place] - [facility] 5 12:28:03 135400 Product containin g 3-hydroxy -3-methyl glutaryl- coenzyme A reductase inhibitor (product) medicatio n myalgias (muscle pain) severe Not available 11/21/2024 44315 009 SNOMED TARSHA Dahl, [place] - [facility] 12:27:48 953694 escitalop barbara Not available dyspnea Not available high 11/21/2024 00520 8 RxNorm Temitope Theodore MA [facility], [place] - [facility] 12:28:07 Medications Name Sig Start Date Stop Date Status Note LastModified by Organization Details LastModified Time prednisone 10 mg tablet 05/01 completed Not Available Not Available Not Available atorvastatin 10 mg tablet TAKE 1 TABLET BY MOUTH ON MONDAYS, , AND FRIDAYS active Not Available Not Available No t Available bimatoprost 0.03 % eye drops INSTILL 1 DROP IN LEFT EYE EVERY NIGHT active Not Available Not Available No t Available amlodipine 5 mg tablet TAKE 1 TABLET BY MOUTH EVERY DAY active Not Available Not Available No t Available aspirin 81 mg tablet,delay ed release Take 1 tablet every day by oral route. active Not Available Not Available No t Available tramadol 50 mg tablet TAKE 1 TABLET TWICE A DAY BY ORAL ROUTE NEEDED. 2024 active Not Available Not Available Not Avai lable amoxicillin 500 mg tablet TAKE 1 TABLET BY MOUTH FOUR TIMES DAILY UNTIL ALL TAKEN 11/03 completed Not Available Not Available Not Available prednisolone acetate 1 % eye drops,suspen joleen 05/01 completed Not Available Not Available Not Available lorazepam 0.5 mg tablet TAKE 1 TABLET BY MOUTH TWICE A DAY NEEDED active Not Available Not Available No t Available erythromycin 5 mg/gram (0.5 %) eye ointment APPLY TO RIGHT UPPER EYELID THREE TIMES DAILY FOR 1 WEEK active Not Available Not Available No t Available raloxifene 60 mg tablet 11/04 completed Not Available Not Available Not Available timolol maleate 0.5 % eye drops INSTILL 1 DROP INTO BOTH EYES EVERY MORNING 11/04 completed Not Available Not Available Not Available ezetimibe 10 mg tablet TAKE 1 TABLET BY MOUTH EVERY DAY active Not Available Not Available No t Available moxifloxacin 0.5 % eye drops 05/01 completed Not Available Not Available Not Available nitrofuranto in monohydrate/ macrocrystal s 100 mg capsule TAKE 1 CAPSULE BY MOUTH EVERY 12 HOURS FOR 5 DAYS 11/03 completed Not Available Not Available Not Available timolol maleate 0.5 % once daily eye drops INSTILL 1 DROP IN BOTH EYES EVERY MORNING active Not Available Not Available No t Available Vitals Date Recorded Body height Body mass index (BMI) Body weight Heart rate Oxygen saturation Oxygen saturation in Arterial blood by Pulse oximetry Systolic And Diastolic Provider Name and Address Organization Details Last Updated DateTime 5 154.94 cm 24.4 kg/m2 17292.0 6 g 68 /min 99 % 99 % 130/68 mm[Hg] Meseret Crowder MA [facility] 5 12:09:24 Date Recorded Body height Body mass index (BMI) Body weight Heart rate Oxygen saturation Oxygen saturation in Arterial blood by Pulse oximetry Systolic And Diastolic Provider Name and Address Organization Details Last Updated DateTime 5 154.94 cm 24.2 kg/m2 69704.8 2 g 68 /min 96 % 96 % 136/72 mm[Hg] Temitope Theodore MA [facility] 5 12:27:29 Date Recorded Body height Body mass index (BMI) Body weight Heart rate Oxygen saturation Oxygen saturation in Arterial blood by Pulse oximetry Systolic And Diastolic Provider Name and Address Organization Details Last Updated DateTime 4 154.94 cm 24.8 kg/m2 46510.0 4 g 71 /min 98 % 98 % 112/62 mm[Hg] Meseret Crowder MA [facility] 4 11:02:00 Date Recorded Body height Body mass index (BMI) Body weight Heart rate Oxygen saturation Oxygen saturation in Arterial blood by Pulse oximetry Systolic And Diastolic Provider Name and Address Organization Details Last Updated DateTime 4 154.94 cm 25 kg/m2 49641.9 1 g 65 /min 97 % 97 % 120/66 mm[Hg] Meseret Crowder MA [facility] 4 11:55:24 Date Recorded Body height Body mass index (BMI) Body weight Heart rate Oxygen saturation Oxygen saturation in Arterial blood by Pulse oximetry Systolic And Diastolic Provider Name and Address Organization Details Last Updated DateTime 4 154.94 cm 24.4 kg/m2 80418.0 6 g 61 /min 99 % 99 % 124/68 mm[Hg] Meseret Crowder MA [facility] 4 12:33:09 Social History Question Answer Notes LastModified by Organizat ion Details LastModified Time Tobacco Smoking Status Former Smoker Ronit Stone MA null, [facility] 11/05/2023 12:44:57 Do You Have An Advance Directive? Yes Information not available 05/01/2024 Are You Blind Or Do You Have Difficulty Seeing? No Glaucoma, Surgery For Right Eye Scheduled Information not available 11/05/2023 What Is Your Level Of Caffeine Consumption? Occasional Tea Information not available 05/01/2024 In The 14 Days Before Symptom Onset, Have You Had Close Contact With A Laboratory-confi rmed COVID-19 While That Case Was Ill? No Information not available 03/03/2024 In The 14 Days Before Symptom Onset, Have You Had Close Contact With A Person Who Is Under Investigation For COVID-19 While That Person Was Ill? No Information not available 03/03/2024 Have You Been To An Area Known To Be High Risk For COVID-19? No Information not available 03/03/2024 Are You Deaf Or Do You Have Serious Difficulty Hearing? No Information not available 11/05/2023 What Type Of Diet Are You Following? CARDIAC Information not available 05/01/2024 What Is The Highest Grade Or Level Of School You Have Completed Or The Highest Degree You Have Received? [id number] Information not available 05/01/2024 Are There Any Guns Present In Your Home? Yes Information not available 05/01/2024 In The Past 7 Days, How Many Days Did You Exercise? 4 Information not available 05/01/2024 On The Days When You Exercised, How Long Did You Exercise Each Day (in Minutes)? 30 Information not available 05/01/2024 How Intense Was Your Typical Exercise? Moderate (brisk Walking) Information not available 05/01/2024 In The Past 7 Days, How Much Pain Have You [place]? Some Information not available 05/01/2024 In General, Would You Say You Health Is: Very Good Information not available 05/01/2024 How Would You Describe The Condition Of Your Mouth And Teeth- Including False Teeth Or Dentures? Very Good Information not available 05/01/2024 Each Night, How Many Hours Of Sleep Do You Get? 7 Information not available 05/01/2024 Has Anyone Ever Told You That You Snore? Yes Information not available 05/01/2024 In The Past 7 Days, How Often Have You [place] Sleepy In The Daytime? Sometimes Information not available 05/01/2024 # Alcohol Drinks Per Week 0 Information not available 05/01/2024 What Was The Date Of Your Most Recent Tobacco Screening? 11/21/2024 Information not available 11/21/2024 What Is Your Relationship Status? Information not available 11/05/2023 Do You Use Your Seat Belt Or Car Seat Routinely? Yes Information not available 11/05/2023 Do You Have Smoke And Carbon Monoxide Detectors In Your Home? Yes Information not available 03/03/2024 Do You Use Sunscreen Routinely? Yes Information not available 03/03/2024 Has Tobacco Cessation Counseling Been Provided? No Information not available 03/03/2024 Sex: Female Functional Status Question Answer Note LastModified by Organizat ion Details LastModified Time Do you use any illicit or recreational drugs? No Information not available 03/03/2024 Do you or have you ever used any other forms of tobacco or nicotine? No Information not available 11/21/2024 What is your level of alcohol consumption? None Information not available 11/05/2023 Are you currently employed? No Retired Information not available 05/01/2024 Are you able to care for yourself? Yes Information not available 11/05/2023 What is your exercise level? Occasional tries to walk every other day Information not available 05/01/2024 Mental Status Question Answer Note LastModified by Organization D etails LastModified Time Do you feel stressed (tense, restless, nervous, or anxious, or unable to sleep at night)? [id number] Information not available 11/05/2023 Family History Relationship Description Onset Age of this Age Resolved Age Notes LastModified by Organization Details LastModified Time Mother Malignant tumor of breast [email or web address] Not available 2023 12:57:06 Mother Hypertensive disorder [email or web address] Not available 2023 12:57:20 Mother Osteoporosis [email or web address] Not avai lable 11/05/2023 12:57:26 Sister Malignant tumor of breast apaytonma Not available 2023 12:57:06 Father Malignant tumor of colon apaytonma Not available 2023 12:57:12 Brother Hypertensive disorder apaytonma Not available 2023 12:57:20 Notes:TIA- mom Medical History Condition Response Coronary Artery Disease N Other N Atrial Fibrillation N High Blood Pressure Y Thyroid Problems N Kidney or Bladder Problems N Depression N COPD N Blood Clots N GI Problems N Have you had a mammogram in the last yea r? N Skin Problems N Anemia N Heart Attack ([place]) N Diabetes N Anxiety Disorder Y Muscle, Joint, or Bone Problems Y Seizures/Epilepsy N Have you had a colonoscopy in the last 1 0 years? N Acid Reflux (GERD) N Cancer Y Stroke N Allergies N Asthma N Have you had a PSA blood test in the las t year? N High Cholesterol Y Hepatitis N Liver Disease N Headaches N Osteoporosis N Heart Failure N Gynecological History Statement/Question Response If Post Menopausal, Age at Menopause 54 Obstetrics History GPAL:G 0 P 0 0 0 0 Immunizations Vaccine Type Date Status Note Provider Nam e and Address Organization Details Recorded Time Influenza, adjuvanted, trivalent, PF 9 completed Mariola [place] null, [place] [facility] 04/28/2024 11:16:52 Influenza, high-dose, quadrivalent, PF 3 completed Mari[place] [facility] 04/28/2024 11:16:52 Influenza, high-dose, quadrivalent, PF 1 completed [place] [facility] 04/28/2024 11:16:52 Influenza, high-dose, quadrivalent, PF 0 completed [place] [facility] 04/28/2024 11:16:52 COVID-19, mRNA, LNP-S, PF, 100 mcg/0.5mL dose or 50 mcg/0.25mL dose 1 completed [place] [facility] 04/28/2024 11:16:52 COVID-19, mRNA, LNP-S, PF, 100 mcg/0.5mL dose or 50 mcg/0.25mL dose 1 completed [place] [facility] 04/28/2024 11:16:52 COVID-19, mRNA, LNP-S, PF, 100 mcg/0.5mL dose or 50 mcg/0.25mL dose 1 completed Mari[place] [facility] 04/28/2024 11:16:52 pneumococcal polysaccharide PPV23 9 completed [place] [facility] 04/28/2024 11:16:52 influenza, unspecified formulation 8 completed [place] [facility] 04/28/2024 11:16:52 Tdap 6 completed [place] [facility] 04/28/2024 11:16:52 Pneumococcal conjugate PCV 13 8 completed [place] [facility] 04/28/2024 11:16:52 Influenza, split virus, trivalent, preservative 3 completed [place] [facility] 04/28/2024 11:16:53 Influenza, split virus, trivalent, PF 4 completed [place] [facility] 04/28/2024 11:16:53 Past Encounters Encounter ID Performer Location Encounter Start Date Encounter Closed Date Diagnosis/Indication Diagnosis SNOMED-CT Code Diagnosis ICD10 Code Diagnosis Note [id number] [facility] [address] [place] [phone] 11/05/2023 12:31:44 11/05/2023 13:58:14 Chronic neck pain 9126260996 107 M54.2 Anxiety 46540022 F41.9 Hyperlipidemia 90816664 E78.5 Essential hypertension 45833273 I10 [id number] MD [facility]leson (Adult Med) [address] [place] [address] 03/03/2024 10:55:47 03/03/2024 11:46:28 Essential hypertension 15446374 I10 Hyperlipidemia 10745374 E78.5 Anxiety 14444382 F41.9 [id number] Freddy English MD [facility] [place] [address] [place], [place] [address] 05/01/2024 11:49:41 05/01/2024 12:45:08 Adult health examination 726849893 Z00.00 Health Risk Assessment collected and reviewed Overweight 249177686 E66 .3 [id number] Freddy English MD [facility] [employer] [facility] [place] [address] [place] [address] 07/06/2024 12:10:55 07/06/2024 13:37:36 Body mass index 20-24 - normal 311264590 Z68.24 Essential hypertension 17144889 I10 Hyperlipidemia 25320297 E78.5 Medication monitoring 39 8592355 Z51.81 [id number] Freddy English MD [facility] (Adult Med) [address] [place] [address] 11/08/2024 11:54:30 11/08/2024 12:28:23 Body mass index 20-24 - normal 412352627 Z68.24 Overweight 976465639 E66 .3 Essential hypertension 93128351 I10 Hyperlipidemia 98985933 E78.5 Anxiety 33484141 F41.9 Chronic neck pain 117314 9087 107 M54.2 [id number] Freddy English MD [facility] (Adult Med) [address] [place] [phone] 11/21/2024 12:10:54 11/21/2024 12:38:01 Body mass index 20-24 - normal 890948389 Z68.24 Overweight 344475893 E66 .3 Blephariti s of right upper eyelid 3632093311 33719 H01.001 Health Concerns Section Related Observation LastModified by Organization Detai ls LastModified Time None Recorded Concern Status LastModified by Organization Details LastModified Time None Recorded Advance Directives Directive Y: Payers Encounter Date Sequence Insurance Name Policy Number Policy Jensen Covered Member ID Jensen Member ID Guarantor Name 03/03/2024 2 [place] ([place]O) [id number] Meredith Lorenzo [id number] Meredith Lorenzo 03/03/2024 1 [place] Meredith L Bj [id number] Meredith Bj 05/01/2024 2 [place]) 104 Meredith Bj [id number] Meredith Bj 05/01/2024 1 [place] Meredith L Bj [id number] Meredith Bj 07/06/2024 2 [place] 104 Meredith Bj [id number] Meredith Bj 07/06/2024 1 [place] Meredith L Bj [id number] 4 Meredith Bj 11/08/2024 2 [place] 104 Meredith Bj [id number] Meredith Bj 11/08/2024 1 [place] Meredith L Bj [id number] 4 Meredith Bj 11/21/2024 2 [place] 104 Meredith Bj [id number] Meredith Bj 11/21/2024 1 [place] Meredith L Bj [id number] Meredith Bj Notes Date Note Type Note Provider Name and Address Organization Details Recorded Time 03/03/2024 text/html interval history twisted her knee in the [facility] [place] has seen ortho x-ray negative cortisone shot given and they are going to give her a week of some prednisone. Hypertension no chest pain or headache. Neck pain seems to be doing okay right now. Dyslipidemia she is taking her Zetia without any side effects. Her anxiety is stable as well Freddy English MD Attn: [address] [place], [address], [facility] 03/03/2024 15:07:31 05/01/2024 text/html MAW 2Reported bypatient.Diet and Nutrition:healthy diet Fracture Risk:no history of fractures; no sudden unexplained fractures Concentration and Memory:no decreased concentrating ability; no memory lapses or loss; does not forget words Speech/Motor difficulties:no speech difficulties; no difficulty expressing formulated concepts; no difficulty with fine manipulative tasks; no difficulty writing/copying; no slowed reaction time; does not knock things over when trying to pick them up Hearing:no loss of hearing Vision:worse both distance and near(glasses, glaucoma) Activities of Daily Living:able to bathe with limited or no assistance; able to contol urination and bowels; able to dress with limited or no assistance; able to feed self with limited or no assistance; able to get out of chair or bed with limited or no assistance; able to groom with limited or no assistance; able to toilet with limited or no assistance Instrumental Activities of Daily Living:able to do house work with limited or no assistance; able to grocery shop with limited or no assistance; able to manage medications with limited or no assistance; able to manage money with limited or no assistance; able to prepare meals with limited or no assistance; able to use the phone with limited or no assistance Falls Risk Assessment:no frequent falls while walking; no fall in the past year; no fall since last visit; no dizziness/vertigo Home Safety:no unsafe steve hazzards; no unsafe stairs; working smoke/CO detectors; practicing 'safer sex'; has hand bars in the bathroom/shower; good lighting in the home;fire arms Freddy English MD Attn: [address] [place], [address], [facility] 05/21/2024 16:16:22 07/06/2024 text/html hypertension blo od pressure controlled doing well dyslipidemia no problems with her medications. Anxiety has been stable as has her pain Freddy English MD Attn: [address] [place], [address], [facility] 07/08/2024 18:07:59 11/08/2024 text/html hypertension blo od pressure controlled doing well dyslipidemia no problems with her medications. Anxiety has been stable as has her pain. There has no side effects from any medications Freddy English MD Attn: Accounting[address] [place], [address], [facility] 11/18/2024 17:45:41 11/21/2024 text/html Swelling right eyelid upper vision not affect it has been going on for a couple of days Freddy English MD Attn: Accounting[address] [facility], [place], [address], [facility] - [facility] 11/26/2024 16:00:38 OBGyn Episode No OBEpisode recorded.
--- OUTSIDE RECORDS SUMMARY | 2024-12-26 00:41 | XMS_ITS | Continuity of Care Document ---
Author Organization [facility] Address [address] [place] [address] Phone Care Team Providers Care Tap Puller Name Role Phone Barber Aarti Unavailable Unavailable Procedures Procedure Date Visual Field Examination(s) Office/outpatient Visit, Est Eye Exam & Treatment Fundus Photography W/ Report Refraction Visual Field Examination(s) Office/outpatient Visit, Est Progressive Lens, Plastic Frames Deluxe Anti-reflective Coating Tint Photochromatic, Polycarb 9 Tax - Medical Office/outpatient Visit, Est Office/outpatient Visit, Est Visual Field Examination(s) Office/outpatient Visit, Est Office/outpatient Visit, Est Optic Nerve Topography Optic Nerve Topography Office/outpatient Visit, Est Office/outpatient Visit, Est Eye Exam & Treatment Refraction Advance Directives Directive Yes / No Effective Date File Name No Information Encounters Encounter Description Practice Location Reason(s) For Visit Diagnoses Date Provider Providers Copied on Encounter [facility], [address], [place], [place], [address], [place] tel:[phone] [facility] No Information 1-201 0 Elisabeth Broussard. [address] , [address], [place], [place], [facility], [place]. tel:[phone] Referring Provider: Aarti Sena, [address], [place], [place], [facility]. tel:[phone] Office/outpat ient Visit, [facility], [address] [place] [address] [address], [place], [place], [address], [place] tel:[phone] [facility] No Information 5-201 0 Elisabeth Broussard. [address] , [address], [place], [facility], [place]. tel:[phone] [facility], [address], [place], [place], [address], [place] tel:[phone] [facility] No Information 0 9-201 0 Elisabeth Broussard. [address] , [address], [place], [facility], [place]. tel:[phone] Referring Provider: Aarti Sena, [address], [place], [facility]. tel:[phone] [facility], [address] [place] [address] [address], [place], [place], [address], [place] tel:[phone] [facility] No Information 6-200 9 Elisabeth Broussard. [address] , [address], [place], [address], [place]. tel:[phone] Referring Provider: Aarti Sena, [address], [place], [facility]. tel:[phone] Office/outpat ient Visit, [facility], [address] [place] [address] [address], [place], [place], [address], [place] tel:[phone] [facility] [place] No Information Andrea- 8-200 9 Elisabeth Carrion [address] [facility] [place] , [address], [place], [address], [place]. tel:[phone] [facility], [address] [place] [address] [address], [place], [place], [address], [place] tel:[phone] [facility] [place] No Information 3-200 9 [employer] [facility] [employer] . [address] [facility], [address], [place], [place], [address], [place]. tel:[phone] Referring Provider: Aarti Sena, [facility] [place] [address], [place], [facility]. tel:[phone] sulting Provider: Toya Goldman, [address] [place], [place], [facility]. tel:[phone] Office/outpat ient Visit, [facility], [address] [place] [address] [address], [place], [place], [address], [place] tel:[phone] [facility] [place] No Information Feb-0 5-200 9 Elisabeth Carrion [address] [facility] [place] , [address], [place], [address], [place]. tel:[phone] Office/outpat ient Visit, [facility], [address] [place] [address] [address], [place], [place], [address], [place] tel:[phone] [facility] [place] No Information Oct-0 2-200 8 Elisabeth Carrion [address] [facility] , [address], [place], [address], [place]. tel:[phone] [facility], [address] [place] [address] [address], [place], [place], [address], [place] tel:[phone] [facility] [place] No Information Sep-0 4-200 8 Elisabeth Carrion [address] [facility] , [address], [place], [facility], [place]. tel:[phone] Referring Provider: Aarti Sena, [facility] [address], [place], [facility]. tel:[phone] Office/outpat ient Visit, [facility], [address] [place] [address] [address], [place], [place], [address], [place] tel:[phone] [facility] [place] No Information May-0 8-200 8 Elisabeth Broussard. [address] [facility] , [address], [place], [facility], . tel:[phone] Office/outpat ient Visit, [facility], [address] [place] [address] [address], [place], [place], [address], [place] tel:[phone] [facility] [place] No Information Jamal-1 0-200 8 Elisabeth Guzmán [facility] , [address], [place], [facility], [place]. tel:[phone] [facility], [address] [place] [address] [address], [place], [place], [address], [place] tel:[phone] [facility] [place] No Information Jul-1 4-200 7 Elisabeth Guzm[facility] , [address], [place], [facility], . tel:[phone] Referring Provider: Aarti Sena, [address], [place], [facility]. tel:[phone] Office/outpat ient Visit, [facility], [address] [place] [address] [address], [place], [place], [address], [place] tel:[phone] [facility] [place] No Information Apr-2 0-200 7 Elisabeth Broussard. [address] [facility] , [address], [place], [facility], . tel:[phone] Office/outpat ient Visit, [facility], [address], [place], [place], [address], [place] tel:[phone] [facility] No Information 7-200 7 Elisabeth Aarti. [address] , [address], [place], [address], . tel:[phone] [facility], [address], [place], [place], [address], [place] tel:[phone] [facility] No Information 0 5200 7 Elisabeth Aarti. [address] , [address], [place], [address], . tel:[phone] Family History Family Member Type Diagnosis Age At Onset No Information Payers Payer name Insurance type Covered constitution party ID Patti cruzjovanny(s) [place] BL [id number] Social History Type Description Quantity Date Captured Comments Sex Female Smoking Status No Information Chief Complaint And Reason For Visit No Information Reason For Referral Reason For Referral No Information History Of Present Illness Encounter Date Complaint History Of Prese nt Illness No Information Functional Status Date Functional Assessmen t No Information Instructions Date Instruction Additional Infor mation No Information Assessments Type Assessment Date No Information Patient Care Teams Name Effective Dates (start - stop) Status Members No Information
--- OUTSIDE RECORDS SUMMARY | 2024-12-26 00:41 | XMS_ITS | Continuity of Care Document ---
Author Organization [facility] Address [address] [place] [address] [place] [phone] Phone Care Team Providers Care Primary Montessori Teacher Name Role Phone Otto PT,MPT,ATC, Santiago Unavailable Unavai lable Procedures Procedure Date Therapeutic Activities Ultrasound Neuromuscular Re-Ed Therapeutic Exercise Therapeutic Activities Neuromuscular Re-Ed Manual Therapy Therapeutic Exercise Therapeutic Activities Neuromuscular Re-Ed Therapeutic Exercise Manual Therapy Therapeutic Activities Neuromuscular Re-Ed Therapeutic Exercise Manual Therapy Therapeutic Activities Progress Note Neuromuscular Re-Ed Manual Therapy Therapeutic Exercise Manual Therapy Neuromuscular Re-Ed Therapeutic Exercise Therapeutic Activities Therapeutic Activities Therapeutic Exercise Neuromuscular Re-Ed Manual Therapy Therapeutic Activities Neuromuscular Re-Ed Manual Therapy Therapeutic Exercise Neuromuscular Re-Ed Therapeutic Exercise Manual Therapy Therapeutic Activities Neuromuscular Re-Ed Therapeutic Activities Manual Therapy Therapeutic Exercise Manual Therapy Therapeutic Activities Therapeutic Exercise Neuromuscular Re-Ed PT Evaluation Moderate Complexity Therapeutic Activities Neuromuscular Re-Ed Therapeutic Exercise Manual Therapy Advance Directives Directive Yes / No Effective Date File Name No Information Encounters Encounter Description Practice Location Reason(s) For Visit Diagnoses Date Provider Providers Copied on Encounter [facility] [address], [place], [place], [address], tel:[phone] [place] No Information 1 [place], [place], . Referring Provider: Tobi Han, [address] [facility] [address], [place], [address]. tel:[phone] [facility] [address], [place], [place], [address], tel:[phone] [place] No Information 1 [facility]. Referring Provider: Tobi Han, [address] [facility] [address], [place], [address]. tel:[phone] [facility] [address], [place], [place], [address], tel:[phone] [place] No Information 1 [facility]. Referring Provider: Tobi Han, [address], [place], [address]. tel:[phone] [facility] [address], [place], [place], [address], tel:[phone] [place] No Information 0 1 [place]. Referring Provider: Tobi Han, [address], [place], [address]. tel:[phone], [place], [place], [address], [place] tel:[phone] [place] No Information Mar-3 0- 1 Menjivar Santiago. , [place], [place]. Referring Provider: Tobi Han, [address] [facility] [address], [place], [address]. tel:[phone], [place], [place], [address], [place] tel:[phone] [place] No Information Mar-2 6 1 Menjivar [place]. , [place], [place]. Referring Provider: Tobi Han, [address] [facility] [address], [place], [address]. tel:[phone], [place], [place], [address], tel:[phone] [place] No Information Mar-2 3- 1 Menjivar [place]. , [place], [place]. Referring Provider: Tobi Han, [address] [facility] [address], [place], [address]. tel:[phone], [place], [place], [address], [place] tel:[phone] [place] No Information Mar-1 6- 1 Menjivar [place]. , [place], [place]. Referring Provider: Tobi Han, [address], [place], [address]. tel:[phone], [place], [place], [address], [place] tel:[phone] [place] No Information Mar-1 2- 1 Menjivar Santiago. , [place], [place]. Referring Provider: Tobi Han, [address], [place], [address]. tel:[phone], [place], [place], [address], tel:[phone] [place] No Information Mar-0 9- 1 [facility]. . Referring Provider: Tobi Han, [address] [facility] [address], [place], [address]. tel:[phone] [facility] [address] [facility] [address], [place], [place], [address], tel:[phone] [place] No Information Mar-0 5- 1 [facility]. Referring Provider: Tobi Han, [address] [facility] [address], [place], [address]. tel:[phone] [facility] [address] [place] [address], [place], [place], [address], tel:[phone] [place] No Information Mar-0 2- 1 [facility]. Referring Provider: Tobi Han, [address] [facility] [address], [place], [address]. tel:[phone] Family History Family Member Type Diagnosis Age At Onset No Information Payers Payer name Insurance type Covered republican ID Authorjermaine dewitt(s) Medicare [place] MB [id number] [facility] [id number] Social History Type Description Quantity Date Captured [...]
--- OUTSIDE RECORDS SUMMARY | 2024-12-26 00:41 | XMS_ITS | Clinical Summary ---
Author Organization [facility] Address [address] [place] [address] Care Team Providers Care Wheel And Axle Inspector Name Role Phone Dayron English MD Primary Care Provider [phone] Allergies Active Allergy Reactions Criticality Noted Date Comments Escitalopram Shortness of breath High Hydrocodone Vomiting Low 12/10/2020 Bqbqxte-Bkl-Bma Reductase Inhibitors Muscle pain High 10/12/2023 Medications [...] PCV 13 09/08/2017 Pneumococcal Polysaccharide PPV23 11/22/2018 Surgical History Surgery Date Site/Laterality Comments CERVICAL FUSION 08/02/2003 - 08/01/2004 ROTATOR CUFF REPAIR 08/02/2008 - 08/01/2009 Right CATARACT EXTRACTION 08/02/2021 - 08/01/2022 Left TUBAL LIGATION Medical History Medical History Date Comments Personal history of other ma lignant neoplasm of skin History of nonmelanoma skin cancer - (Added by TW Conv) Hyperlipidemia Hypertension Postmenopausal Age 54 TIA (transient ischemic attack) 2004 PONV (postoperative nausea and vomiting) Family History Medical History Relation Name Comments Colon cancer Father Breast cancer Mother ER+, recurred at 92 Breast cancer Sister Pat TNBC at 51 the n contralateral TNBC at 62, myRisk neg Relation Name Status Comments Father Mother Sister Pat Alive Social History Tobacco Use Types Packs/Day Years [...] on file Legal Sex Female 1:26 AM SOFTWARE SUPPORT ENGINEER Gender Identity Not on file Sexual Orientation Not on file Obstetrics History Para Term AB IAB SAB Ectopic Multiple Livin g Live Births 5 4 4 1 1 4 4 Date Outcome GA Total Labor Labor/2nd/3rd Weight Sex Type Anes PTL Elma A1 A5 Name Clin Term Term Term Term SAB Last Filed Vital Signs Vital Sign Reading [...] 04/19/2024 1:03 PM CDT Plan of Treatment Health Maintenance Due Date Last Done Comments Depression Screening 1945 Hepatitis C Screening 1945 Osteoporosis Screening-Bone Density Scan 1945 DTaP/Tdap/Td Vaccine (1 - Tdap) 1958 Hepatitis B Screening 1965 Zoster Vaccine (1 of 2) 1997 Covid-19 Vaccine (4 - 2023-2 5 season) 2024 07/12/2021, 10/15/2020, 09/05/2020 Fall Risk Assessment 11/21/2024 11/22/2023 Influenza Vaccine (Season Ended) 2025 05/20/20, 05/23/2014 Well Visit 65+ 04/19/2025 04/19/2024, 04/07/2022 Pneumococcal vaccine 65+ Completed 11/22/2018, 01/2018 Breast Cancer Screening-Mammogram Discontinued 06/16/2024, 04/09/2023, 04/15/2022, Additional history exists Medical Devices Implanted Type Area Pouch Making Machine Operator Device Identifier Shelf Expiration Date Model / Serial / Lot [place] [employer] Lens Tecjeanine Eyhance Iol [id number] - [id number] - [id number] Implanted:Qty: 1 on 11/22/2023 by Alf Nance MD at [facility] Lens Right: Eye [employer] [id number] 03/19/2026 [id number] / [id number] / Procedures Procedure Name Priority Date/Time Associated Diagnosis Comments CONTRAST ENHANCED DIGITAL MAMMOGRAPHY BILATERAL Schedule Routine, Read Routine (OP Routine) 06/16/2024 2:08 PM SOFTWARE SUPPORT ENGINEER Family history of breast cancer Heterogeneously dense tissue of both breasts on mammography Encounter for screening mammogram for breast cancer At high risk for breast cancer from Last 3 Months or Most Recently Relevant to Health Maintenance Results * Contrast Enhanced Digital Mammography Bilateral (06/16/2024 2:08 PM SOFTWARE SUPPORT ENGINEER) Anatomical Region Laterality Modality Breast Bilateral Mammography 06/16/2024 3:11 PM SOFTWARE SUPPORT ENGINEER Impressions 06/16/2024 3:11 PM SOFTWARE SUPPORT ENGINEER No evidence of malignancy in either breast. OVERALL FINAL ASSESSMENT: BI-RADS Category 1: Negative. RECOMMENDATION: Annual screening mammography is recommended. Electronically signed by: Mely Mart M.D. Narrative 06/16/2024 3:11 PM SOFTWARE SUPPORT ENGINEER EXAMINATION: BILATERAL CONTRAST ENHANCED DIGITAL DIAGNOSTIC MAMMOGRAM [...] recommended. Electronically signed by: Mely Mart M.D. us Melissa Clarke MD IMG MAMMO PROCEDURES Final Result from Last 3 Months or Most Recently Relevant to Health Maintenance Insurance MEDICARE [facility] Address: [address] [address] [place] [address] [facility] MEDICARE [facility] MEDICARE [facility] Member Subscriber Plan / Payer (Ef fective 2010-Present) Name:Meredith Lorenzo Relation to Subscriber:Self Name:Meredith Lorenzo Payer ID:[id number] (NAIC) Group ID:[id number] Type:[employer] Address: [address] [place] [address] Care Teams Wheel And Axle Inspector Relationship Specialty Start Date End Date Dayron English MD PCP - General Internal Medicine 11/01/20
--- OUTSIDE RECORDS SUMMARY | 2024-12-26 00:41 | XMS_ITS | Encounter Summary ---
Author Organization [facility] Address [address] [facility] [place] [address] Care Team Providers Care Stockroom Associate Name Role Phone Unavailable Primary Care Provider Unavailabl e Encounter Details Date Type Department Care Team (Late st Contact Info) Description 03/03/2024 Lab Requisition [facility] - DermPath Lab [address] [place] [id number] Calixto Sánchez MD [address] [place] [address] Social History Tobacco Use Types Packs/Day Years Used Date Smoking Tobacco: Never Assessed Comments Unknown Sex and Gender Information Value Date Recorded Sex Assigned at Not on file Legal Sex Female 5:50 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 Gender Identity Not on file Sexual Orientation Not on file documented as of this encounter Plan of Treatment Not on file documented as of this encounter Procedures Procedure Name Priority Date/Time Associated Diagnosis Comments DERMATOPATHOLOGY Routine 03/01/2024 3:33 AM CDT documented in this encounter Results * DERMATOPATHOLOGY (03/01/2024 3:33 AM CDT) Case Report Dermatopathology Report Case: [id number] Authorizing Provider: Calixto Sánchez MD Collected: 03/01/2024 03:33 AM Ordering Location: [facility] - Received: 03/03/2024 11:43 AM DermPath Lab Pathologist: Swapna Almaraz MD Specimen: Skin, right upper outer arm below deltoid 12:49 PM CDT DERMATOPATHOLOGY LABORATORY Final Diagnosis Specimen A. SKIN, right upper outer arm below deltoid: SUPERFICIAL AND MID PERIVASCULAR LYMPHOCYTIC INFILTRATE WITH EOSINOPHILS (T63.484A) (see microscopic description and comment) 12:49 PM CDT DERMATOPATHOLOGY LABORATORY at 1249 CDT Clinical History R/O BCC 12:49 PM CDT DERMATOPATHOLOGY LABORATORY Gross Description Specimen A: Received is one formalin filled container labeled with the patients name and designated right upper outer arm below deltoid. The specimen consists of a shave removal measuring 97l30b9 mm. Jar 0. 12:49 PM CDT DERMATOPATHOLOGY LABORATORY Microscopic Description Specimen A. SKIN, right upper outer arm below deltoid: There is a superficial and mid perivascular and interstitial infiltrate of lymphocytes with eosinophils. There is no evidence of epithelial dysplasia or malignancy in the sections examined. COMMENT: These histological findings are consistent with an arthropod bite reaction. 12:49 PM CDT DERMATOPATHOLOGY LABORATORY Disclaimer An external and internal positive and negative controls are appropriate for the histochemical, immunohistochemical and immunofluorescence stain(s) in this case (if any), except where stated explicitly. The performance characteristics of the stain(s) cited in this report were developed and its performance characteristic determined by the Dermatopathology Laboratory at [facility], directed by Dr. Tanya Ace. These tests need not be, and therefore are not, approved by the [place] Food and Drug Administration. The tests are used for clinical purposes. Billing Codes Specimen Charges Stain Charges 20410 1 12:49 PM CDT DERMATOPATHOLOGY LABORATORY Embedded Images 12:49 PM CDT DERMATOPATHOLOGY LABORATORY Pathology/Cytolo gy TISSUE SPECIMEN FROM SKIN / Unknown 03/01/2024 3:33 AM CDT 03/03/2024 11:43 AM CDT Calixto Sánchez MD LAB - PATHOLOGY/CYTOLOGY ORD ERABLES Final Result DERMATOPATHOLOGY LABORATORY [facility] - Department of Dermatology [address] [place] [address], [facility] [phone] documented in this encounter Visit Diagnoses Not on filedocumented in this encounter
[2024-12-26 09:19] VITALS: BP 116/88; PULSE 64; RESP 18; TEMP 36.5; O2SAT 100; BMI 24.2
[2024-12-26] MEDS: LACTATED RINGERS 1,000 ML 150 ML IV CONT (09:31)
--- NOTE | 2024-12-26 09:48 | P.PNAN_ITS ---
Anes - Initial Pre Proc Eval Procedure: Operation Date: 12/26/24 10:30 Proposed Procedures p Screening Colonoscopy - Cezar Dhillon MD Date/Time: 12/26/24 09:48 Surgeon: Cezar Dhillon MD Pre Op Diagnosis: Screening Patient Data Age: 79 Gender: F Height: 1.55 m Weight: 58.2 kg Last Vital Signs Temp 97.7 F 12/26/24 09:19 Pulse 64 12/26/24 09:19 Resp 18 12/26/24 09:19 BP 116/88 12/26/24 09:19 Pulse Ox 100 12/26/24 09:19 O2 Del Method Room Air 12/26/24 09:19 Allergies Allergy/AdvReac Type Severity Reaction Status Date / Time escitalopram (From Lexapro) AdvReac Severe Difficulty Verified 12/26/24 09:17 Breathing [id number] Reductase AdvReac Intermediate Muscle Pain Verified 12/26/24 09:17 Inhibitor anesthesia AdvReac Intermediate Nausea Uncoded 12/26/24 09:17 Home Medications ?Medication ?Instructions ?Recorded ?Confirmed ?Type amlodipine 5 mg tablet 5 mg PO DAILY 06/15/24 12/26/24 History bimatoprost 0.03 % drops with 1 drp topical QHS 06/15/24 12/20/24 History applicator, eyelash base ezetimibe 10 mg tablet (Zetia) 10 mg PO DAILY 06/15/24 12/26/24 History lorazepam 0.5 mg tablet 0.25 mg PO BID PRN anxiety 06/15/24 12/20/24 History timolol 0.5 % eye drops 1 drp EACH EYE DAILY 06/15/24 12/20/24 History tramadol 50 mg tablet 50 mg PO Q6H PRN pain 06/15/24 12/20/24 History atorvastatin 10 mg tablet 10 mg PO QPM 12/20/24 12/26/24 History ondansetron HCl 4 mg tablet 4 mg PO Q6H #4 tabs 12/22/24 Rx Patient hx anesthesia problems: none Family hx anesthesia problems: none Results Review: All pre-operative results and documents have been reviewed as part of the pre- operative evaluation. [facility] Past Medical History Medical History Cataract Hyperlipidemia Hypertension Family History Family History Father , cancer Acute myocardial infarction Mother Cancer Sibling Breast cancer Social History Social History (Updated 06/15/24 @ 11:00 by Beatrice Araujo CMA) Smoking status: Former smoker Second hand tobacco smoke exposure: Yes Substance use: never Substance use type: does not use Do You Feel Safe in your Home?: Yes Lack of Transportation: No Lack of Food: Never True Current Housing: Decline to Answer Concerned About Future Housing: Decline to Answer Difficulty Paying Gas/Electric Bills: Decline to Answer Difficulty Paying for Meds: Decline to Answer Currently Unemployed: Decline to Answer Education: Decline to Answer Difficulty w/ Childcare or Family Care: Decline to Answer Living arrangements: alone Occupation/Education: retired 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 Informed Consent: The patient's anesthetic plan and its attendant risks and benefits were discussed with the patient/family/POA. Questions were solicited and answers provided to the satisfaction of the patient/family/POA.
--- NOTE | 2024-12-26 09:55 | PM.HPGS ---
History of Present Illness History of Present Illness Consent: Risks, benefits, and alternatives have been discussed and questions answered. Patient agrees to proceed with procedure. Chief complaint: Screening Narrative: Meredtih Lorenzo is a 79 year old female with history of colon polyp Review of Systems Review of Systems: All systems reviewed & are unremarkable except as noted in HPI and below PMFSH Past Medical History Medical History (Updated 12/26/24 @ 09:56 by Cezar Dhillon MD) Colon polyp Cataract Hypertension Hyperlipidemia Family History Family History Father , cancer Acute myocardial infarction Mother Cancer Sibling Breast cancer Social History Social History (Updated 06/15/24 @ 11:00 by Beatrice Araujo CMA) Smoking status: Former smoker Second hand tobacco smoke exposure: Yes Substance use: never Substance use type: does not use Do You Feel Safe in your Home?: Yes Lack of Transportation: No Lack of Food: Never True Current Housing: Decline to Answer Concerned About Future Housing: Decline to Answer Difficulty Paying Gas/Electric Bills: Decline to Answer Difficulty Paying for Meds: Decline to Answer Currently Unemployed: Decline to Answer Education: Decline to Answer Difficulty w/ Childcare or Family Care: Decline to Answer Living arrangements: alone Occupation/Education: retired 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[employer] Gender identity (if verbalized by the patient): Female Meds Home Medications and Allergies Home Medications ?Medication ?Instructions ?Recorded ?Confirmed ?Type amlodipine 5 mg tablet 5 mg PO DAILY 06/15/24 12/26/24 History bimatoprost 0.03 % drops with 1 drp topical QHS 06/15/24 12/20/24 History applicator, eyelash base ezetimibe 10 mg tablet (Zetia) 10 mg PO DAILY 06/15/24 12/26/24 History lorazepam 0.5 mg tablet 0.25 mg PO BID PRN anxiety 06/15/24 12/20/24 History timolol 0.5 % eye drops 1 drp EACH EYE DAILY 06/15/24 12/20/24 History tramadol 50 mg tablet 50 mg PO Q6H PRN pain 06/15/24 12/20/24 History atorvastatin 10 mg tablet 10 mg PO QPM 12/20/24 12/26/24 History ondansetron HCl 4 mg tablet 4 mg PO Q6H #4 tabs 12/22/24 Rx Allergies Allergy/AdvReac Type Severity Reaction Status Date / Time escitalopram (From Lexapro) AdvReac Severe Difficulty Verified 12/26/24 09:17 Breathing [id number] Reductase AdvReac Intermediate Muscle Pain Verified 12/26/24 09:17 Inhibitor anesthesia AdvReac Intermediate Nausea Uncoded 12/26/24 09:17 Vital Signs Vital Signs - 24 hr 12/26/24 09:19 Temperature 97.7 F Pulse Rate 64 Respiratory Rate 18 Blood Pressure 116/88 Pulse Oximetry 100 Oxygen Delivery Room Air Exam Const: General: comfortable and no acute distress HENMT: Face/Nose/Sinus: Normal nares present Eyes: General: appearance normal, both eyes and all related structures Neck: Neck: no JVD Resp: Auscultation: clear to auscultation bilaterally Cardio: Rate: regular rate Rhythm: regular rhythm GI: Inspection: non-distended GI Palp: Yes Soft to palpation Skin: General skin exam: normal color Neuro: General: gait normal Speech: normal speech Extrem: General: normal to inspection Psych: Mental Status: mental status grossly normal Assessment and Plan Assessment and plan (1) Colon polyp: Code(s): K63.5 - Polyp of colon Status: Acute Assessment and Plan: colonoscopy
[2024-12-26 10:18] VITALS: BP 111/63; PULSE 77; RESP 27; O2SAT 99
[2024-12-26 10:28] VITALS: BP 119/64; PULSE 75; RESP 19; O2SAT 100
[2024-12-26 10:38] VITALS: BP 132/74; PULSE 73; RESP 17; O2SAT 100
== END 2024-12-26 10:52 | disposition home or self-care (01) ==
PROVIDERS: PCP Internal Medicine; Referring Provider Internal Medicine; Visit Provider Internal Medicine Gastroenterology
PROC: 0DJD8ZZ Inspection of Lower Intestinal Tract, Via Natural or Artificial Opening Endoscopic (ICD-10-PCS; CPT 45378; principal; 2024-12-26 10:30)
DX: Z12.11 Encounter for screening for malignant neoplasm of colon (principal); E78.5 Hyperlipidemia, unspecified; I10 Essential (primary) hypertension; Z79.891 Long term (current) use of opiate analgesic; Z86.0100 Personal history of colon polyps, unspecified; Z87.891 Personal history of nicotine dependence; Z80.3 Family history of malignant neoplasm of breast; Z82.49 Family history of ischemic heart disease and other diseases of the circulatory system
CPT/HCPCS: G0105; J2003; J2704; J7120